=== PATIENT | female | born 1955 | race Caucasian/White ===

== ENCOUNTER 2022-04-25 16:19 | Outpatient (CLI) | payer MEDICARE, SELFPAY ==
--- NOTE | ~2022-04-25 | MM_ITS ---
EXAMINATION: MM screening [facility] BI w janeth HISTORY: Screening mammogram TECHNIQUE: Craniocaudal and mediolateral oblique 3-D tomosynthesis images were obtained and synthetic 2-D images were generated. CAD analysis was submitted and interpreted. COMPARISON: 11/21/2018, 09/29/2013 BREAST PARENCHYMAL COMPOSITION: The breasts are almost entirely fatty. FINDINGS: Scattered benign-appearing calcifications are present. There is no suspicious mass, calcifi cation, or architectural distortion to suggest malignancy in either breast. There has been no suspici ous interval change. IMPRESSION: 1. No mammographic evidence of malignancy. 2. Recommend routine screening mammography in one year. BI-RADS Category 2: Benign finding(s). Reviewed, dictated and finalized at location A.
== END 2022-04-25 16:20 | disposition home or self-care (01) ==
PROVIDERS: PCP Family Medicine; Visit Provider Physician Assistant
DX: Z12.31 Encounter for screening mammogram for malignant neoplasm of breast (principal)
CPT/HCPCS: 77063; 77067

== ENCOUNTER 2022-06-23 09:48 | Outpatient (CLI) | payer MEDICARE, SELFPAY ==
--- NOTE | 2022-06-23 | ECG_ITS ---
Measurements Intervals [place] Rate: 78 P: 62 GA: 146 QRS: 19 QRSD: 113 T: 60 QT: 384 QTc: 438 Interpretive Statements SINUS RHYTHM LOW QRS VOLTAGE IN PRECORDIAL LEADS [QRS DEFLECTION < 1.0 mV IN CHEST LEADS] NONSPECIFIC T-WAVE ABNORMALITY NO PREVIOUS ECG AVAILABLE FOR COMPARISON Electronically Signed On 06-23-2022 16:27:05 CDT by Chris Ware M.D.
--- NOTE | ~2022-06-23 | XR_ITS ---
XR knee RT 3V 06/23/2022 10:31 Indication: Right knee pain Procedure: 2 views right knee Comparison: No prior studies for comparison. Findings: Mild tricompartment osteoarthritis of the right knee. No fracture, subluxation or dislocati on. No significant joint effusion. No foreign bodies. Impression: 1: Mild osteoarthritis of the right knee. Reviewed, dictated and finalized at location A. Impression: 1: Mild osteoarthritis of the right knee.
--- NOTE | ~2022-06-23 | XR_ITS ---
XR knee LT 3V 06/23/2022 10:31 Indication: Left knee pain Procedure: 4 views left knee Comparison: No prior studies for comparison. Findings: No fracture, subluxation or dislocation. No significant joint effusion. No foreign body. No significant joint space narrowing. There is anatomic alignment. Impression: 1: No significant bone or joint abnormality. Reviewed, dictated and finalized at location A. Impression: 1: No significant bone or joint abnormality.
== END 2022-06-23 09:49 | disposition home or self-care (01) ==
PROVIDERS: PCP Physician Assistant; Visit Provider Physician Assistant
DX: M25.561 Pain in right knee (principal); M79.602 Pain in left arm; M17.11 Unilateral primary osteoarthritis, right knee; R94.31 Abnormal electrocardiogram [ECG] [EKG]
CPT/HCPCS: 73562; 93005

== ENCOUNTER 2023-02-07 13:49 | Outpatient (CLI) | payer MEDICARE, SELFPAY ==
--- NOTE | ~2023-02-07 | US_ITS ---
EXAMINATION: US renal BI DATE: 02/07/2023 14:47 INDICATION: STAGE 3A CKD TECHNIQUE: Multiple grayscale and Doppler ultrasound images of the kidneys were obtained. COMPARISON: CT abdomen pelvis 02/20/2008. FINDINGS: The right kidney measures 11.0 x 5.1 x 5.4 cm. The left kidney measures 11.3 x 4.9 x 4.9 cm. The kidn eys demonstrate normal parenchymal echogenicity. Mild bilateral cortical thinning. Bilateral simple r enal cysts. There is no hydronephrosis. The bladder is normal. IMPRESSION: Mild bilateral renal cortical thinning. Bilateral simple renal cysts. Reviewed, dictated and finalized at location K.
== END 2023-02-07 13:50 | disposition home or self-care (01) ==
PROVIDERS: PCP Physician Assistant; Visit Provider Nurse Practitioner Family
DX: N18.31 Chronic kidney disease, stage 3a (principal); N28.1 Cyst of kidney, acquired
CPT/HCPCS: 76775

== ENCOUNTER 2023-07-17 09:58 | Outpatient (CLI) | payer MEDICARE, SELFPAY ==
--- NOTE | ~2023-07-17 | MM_ITS ---
EXAMINATION: MM screening [facility] BI w janeth HISTORY: Screening mammogram TECHNIQUE: Craniocaudal and mediolateral oblique 3-D tomosynthesis images were obtained and synthetic 2-D images were generated. CAD analysis was submitted and interpreted. COMPARISON: 04/25/2022, 11/21/2018, 09/29/2013 BREAST PARENCHYMAL COMPOSITION: There are scattered areas of fibroglandular density. FINDINGS: No suspicious mass, calcification, or architectural distortion are identified in either bogdan ast to suggest malignancy. There has been no suspicious interval change. IMPRESSION: 1. No mammographic evidence of malignancy. 2. Recommend routine screening mammography in one year. BI-RADS Category 1: Negative Reviewed, dictated and finalized at location A.
== END 2023-07-17 09:59 | disposition home or self-care (01) ==
PROVIDERS: PCP Physician Assistant; Visit Provider Physician Assistant
DX: Z12.31 Encounter for screening mammogram for malignant neoplasm of breast (principal)
CPT/HCPCS: 77063; 77067

== ENCOUNTER 2024-05-06 08:25 | Outpatient (CLI) | payer MEDICARE, SELFPAY ==
--- NOTE | ~2024-05-06 | XR_ITS ---
XR knee RT 3V Ordering provider: Beckie Frey, PA History: . OSTEOARTHRITIS OF KNEE RIGHT . Comparison: June 23, 2022 FINDINGS: BONES: No acute fracture or dislocation. JOINT SPACES: Normal. SOFT TISSUES: Normal. IMPRESSION: No acute osseous abnormality right knee. Reviewed, dictated and finalized at location A.
== END 2024-05-06 08:26 | disposition home or self-care (01) ==
PROVIDERS: PCP Physician Assistant; Visit Provider Physician Assistant
DX: M17.9 Osteoarthritis of knee, unspecified (principal)
CPT/HCPCS: 73562

== ENCOUNTER 2024-05-27 10:10 | Outpatient (CLI) | payer MEDICARE, SELFPAY ==
--- NOTE | ~2024-05-27 | CT_ITS ---
CT Scan of the Chest without Contrast: Clinical Indication: Lung cancer screening, nicotine dependence Technique: Contiguous sections were acquired throughout the chest without intravenous contrast. Dose reduction technique was used on this scan by utilizing automated exposure control and iterative recon struction technique. The dose-length product (DLP) was 153.07 mGy-cm. Findings: There is no evidence of any significant mediastinal, hilar or axillary lymphadenopathy. Coronary puneet ry calcifications are present. There is no evidence of pleural or pericardial effusion. The lungs are clear. No pulmonary nodules or infiltrates are noted. Images through the upper abdomen reveal prominent hypodense adrenal glands, suggestive of adrenal hyp erplasia. Impression: Lung RADS 1: Negative. 12 month follow-up screening CT advised. Reviewed, dictated and finalized at location . Impression: Lung RADS 1: Negative. 12 month follow-up screening CT advised.
== END 2024-05-27 10:11 | disposition home or self-care (01) ==
LOC: ANHIMG 10:12
PROVIDERS: PCP Physician Assistant; Visit Provider Physician Assistant
DX: Z12.2 Encounter for screening for malignant neoplasm of respiratory organs (principal); Z87.891 Personal history of nicotine dependence
CPT/HCPCS: 71271

== ENCOUNTER 2024-07-18 10:28 | Outpatient (CLI) | payer MEDICARE, SELFPAY ==
--- NOTE | ~2024-07-18 | MM_ITS ---
EXAMINATION: MM screening [facility] BI w janeth HISTORY: Screening TECHNIQUE: Craniocaudal and mediolateral oblique 3-D tomosynthesis images were obtained and synthetic 2-D images were generated. CAD analysis was submitted and interpreted. COMPARISON: Comparison to multiple prior studies sequentially, with oldest reviewed study dated 05/2022. BREAST PARENCHYMAL COMPOSITION: Not Dense: The breasts are almost entirely fatty. FINDINGS: There is no evidence of suspicious mass, calcification, or architectural distortion to sugg est malignancy in either breast. There has been no suspicious interval change. IMPRESSION: 1. No mammographic evidence of malignancy. 2. Recommend routine screening mammography in one year. BI-RADS Category 1: Negative Reviewed, dictated and finalized at location B.
== END 2024-07-18 10:29 | disposition home or self-care (01) ==
LOC: ANHIMG 10:29
PROVIDERS: PCP Physician Assistant; Visit Provider Physician Assistant
DX: Z12.31 Encounter for screening mammogram for malignant neoplasm of breast (principal)
CPT/HCPCS: 77063; 77067

== ENCOUNTER 2025-04-06 13:10 | Outpatient (CLI) | payer MEDICARE, SELFPAY ==
--- NOTE | ~2025-04-06 | CT_ITS ---
Non-contrast CT scan of the Abdomen and Pelvis Clinical indication: Adrenal disorder Technique: 2.5 mm axial scans were obtained through the abdomen and pelvis without intravenous or or al contrast. Dose reduction technique was used on this scan by utilizing automated exposure control a nd iterative reconstruction technique. The dose-length product (DLP) was 776.53 mGy-cm. Findings: Images through the lung bases reveal minimal pericardial effusion. 6 mm nonobstructing left renal stone present. No hydronephrosis on either side. Multiple small probab le hyperdense renal cysts are present, largest at the right kidney anteriorly measuring 1.5 cm. The liver, spleen, and pancreas appear normal. There is low signal thickening of the bilateral adrena l glands, versus low-density nodules, largest which would measure 2.5 cm and the left adrenal gland. Cholecystectomy clips are present. There is no aortic aneurysm. There is no evidence of bowel obstruction. Images through the pelvis were performed. There is no evidence of ascites or lymphadenopathy. Urinary bladder unremarkable. No pelvic mass evident. Impression: Adrenal hyperplasia versus bilateral adrenal adenomas. Probable bilateral hyperdense renal cysts. Pre and postcontrast CT or MR would be required to exclude solid mass. Reviewed, dictated and finalized at [facility]. Impression: Adrenal hyperplasia versus bilateral adrenal adenomas. Probable bilateral hyperdense renal cysts. Pre and postcontrast CT or MR would be required to exclude solid mass.
--- OUTSIDE RECORDS SUMMARY | 2025-04-06 13:21 | XMS_ITS | Clinical Summary ---
Author Organization [facility] Address [address] [place] [address] Care Team Providers Care Face Man Name Role Phone Beckie Frey Primary Care Provider [phone] Surgical History Surgery Date Site/Laterality Comments HYSTERECTOMY 11/19/2009 - 11/18/2010 OOPHORECTOMY 11/19/2009 - 11/18/2010 Bilateral Social History Tobacco Use Types Packs/Day Years Used Date Smoking Tobacco: Never Assessed Comments Unknown Sex and Gender Information Value Date Recorded Sex Assigned at Not on file Legal Sex Female 10:46 AM CDT Gender Identity Not on file Sexual Orientation Not on file Obstetrics History Para Term AB IAB SAB Ectopic Multiple Livin g Live Births 3 3 3 Date Outcome GA Total Labor Labor/2nd/3rd Weight Sex Type Anes PTL [place] A1 A5 Name Clin Term Term Term Plan of Treatment Health Maintenance Due Date Last Done Comments Colon Cancer Screening-Colonoscopy 1955 Depression Screening 1955 Fall Risk Assessment 1955 Hepatitis C Screening 1956 DTaP/Tdap/Td Vaccine (1 - Tdap) 1967 Hepatitis B Screening 1974 Pneumococcal vaccine 65+ (1 of 1 - PCV) 2006 Zoster Vaccine (1 of 2) 2006 Well Visit 65+ 2021 Breast Cancer Screening-Mammogram 07/19/2024 023 Influenza Vaccine (#1) 2024 Osteoporosis Screening-Bone Density Scan 06/17/2026 06/17/2024 Procedures Procedure Name Priority Date/Time Associated Diagnosis Comments DEXA AXIAL SKELETON BONE DENSITY 1 OR MORE SITES Schedule Routine, Read Routine (OP Routine) 06/17/2024 1:53 PM CDT Asymptomatic menopausal state from Last 3 Months or Most Recently Relevant to Health Maintenance Results * Dexa Axial Skeleton Bone Density 1 or 2 Site (06/17/2024 1:53 PM CDT) Anatomical Region Laterality Modality Body N/A Mammography 06/17/2024 5:13 PM CDT Narrative 06/17/2024 5:13 PM CDT EXAM DESCRIPTION: DEXA AXIAL SKELETON BONE DENSITY 1 OR MORE SITES REASON FOR STUDY: 69 y/o year old F with given history of: Asymptomatic menopausal state 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 REFERENCE: Bone mineral density: T-Score: Normal (T-score above or = -1.0) Low bone mass (T-score between -1.0 and -2.5) replaces the previously used term osteopenia Osteoporosis (T-score = or below -2.5) Z-Score: Within the expected range for age (Z-score above -2.0) Below the expected range for age (Z-score is -2.0 or below) Please see below follow up recommendations. Medical evaluation for secondary causes of low bone mineral density may be appropriate. FRAX is a World Health Organization validated fracture risk assessment tool that calculates a person's 10 year probability of a major osteoporosis related fracture and hip fracture. According to the National Osteoporosis Foundation guidelines, postmenopausal women and men age 50 or older with low bone mass and a 10 year probability of a major osteoporosis related fracture = or greater than 20% or a 10 year probability of a hip fracture = or greater than 3% should be considered for pharmacological treatment for the prevention of osteoporosis. For further information, including treatment recommendations, please refer to the 2019 ISCD Official Positions (http://www.iscd.org) and the NOF's Clinician's Guide to Prevention and Treatment of Osteoporosis (http://www.nof.org/professionals/clinical-guidelines) THIS IS AN ELECTRONICALLY VERIFIED FINAL REPORT 06/17/2024 5:13 PM - Electronically signed by Chris Kovacs M.D. 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 REFERENCE: Bone mineral density: T-Score: Normal (T-score above or = -1.0) Low bone mass (T-score between -1.0 and -2.5) replaces thepreviously used term osteopenia Osteoporosis (T-score = or below -2.5) Z-Score: Within the expected range for age (Z-score above -2.0) Below the expected range for age (Z-score is -2.0 or below) Please see below follow up recommendations. Medical evaluation forsecondary causes of low bone mineral density may be appropriate. FRAX is a World Health Organization validated fracture risk assessmenttool that calculates a person's 10 year probability of a major osteoporosisrelated fracture and hip fracture. According to the National OsteoporosisFoundation guidelines, postmenopausal women and men age 50 or older with low bonemass and a 10 year probability of a major osteoporosis related fracture = or greater than 20% or a 10 year probability of a hip fracture = or greaterthan 3% should be considered for pharmacological treatment for the preventionof osteoporosis. For further information, including treatment recommendations, please referto the 2019 ISCD Official Positions (http://www.iscd.org) and the NOF's Clinician's Guide to Prevention and Treatment of Osteoporosis (http://www.nof.org/professionals/clinical-guidelines) THIS IS AN ELECTRONICALLY VERIFIED FINAL REPORT 06/17/2024 5:13 PM - Electronically signed by Chirs Kovacs M.D. MF: [email or web address] Report ID: [id number] Reading Location: [place] [address] Beckie TAVARES IMRonaldo DXA PROCEDURES Final Resul t from Last 3 Months or Most Recently Relevant to Health Maintenance Insurance [employer] H[employer] Care Teams Face Man Relationship Specialty Start Date End Date Beckie Frey PA [address] [place] [id number] PCP - General Physician Wood Room Supervisor 05/05/24
--- OUTSIDE RECORDS SUMMARY | 2025-04-06 13:21 | XMS_ITS | Continuity of Care Document ---
Author Organization [facility] Address [address] [place] [address] Phone Care Team Providers Care Software Installation Engineer Name Role Phone Darian Golden MD Unavailable Unavailable Advance Directives Directive Yes / No Effective Date File Name No Information Encounters Encounter Description Practice Location Reason(s) For Visit Diagnoses Date Provider Providers Copied on Encounter [facility], [address], [place], [place], [id number], [place] tel:[phone] [facility] No Information 2 0-200 5 Chantel Farmer. [address], [place], [place], [id number], [place]. tel:[phone] Referring Provider: Roland Cantrell MD, [address] [place] [address], [address]. tel:[phone] Family History Family Member Type Diagnosis Age At Onset No Information Payers Payer name Insurance type Covered democrat ID Authoriza tibandar(s) [facility] Commercial CI [id number] Social History Type Description Quantity Date Captured Comments Sex Female Smoking Status No Information Chief Complaint And Reason For Visit No Information Reason For Referral Reason For Referral No Information History Of Present Illness Encounter Date Complaint History Of Prese nt Illness No Information Functional Status Date Functional Assessmen t No Information Instructions Date Instruction Additional Infor mation No Information Assessments Type Assessment Date No Information Patient Care Teams Name Effective Dates (start - stop) Status Members No Information
--- OUTSIDE RECORDS SUMMARY | 2025-04-06 13:21 | XMS_ITS | Clinical Summary ---
Author Organization [facility] Address [address] [place] [address] Care Team Providers Care Sales Compensation Analyst Name Role Phone Malaika Mireles MD Primary Care Provider [phone] Allergies Active Allergy Reactions Criticality Noted Date Comments Tape Unknown 06/10/2019 Surgical tape causes rash Medications aspirin EC 81 MG tablet Take 81 mg by mouth daily. Active vitamin B-12 100 MCG tablet Take 50 mcg by mouth daily. Active atorvastatin 20 MG tablet Take 20 mg by mouth nightly at bedtime. Active losartan 50 MG tablet Take 50 mg by mouth daily. Active hydrochlorothia zide 25 MG tablet Take 25 mg by mouth every morning. Active pioglitazone 45 MG tablet Take 45 mg by mouth daily. Active metFORMIN 500 MG tablet Take 500 mg by mouth 2 (two) times daily with meals. Active glipiZIDE 10 MG tablet Take 10 mg by mouth 2 (two) times daily. Active omeprazole 40 MG capsule Take 40 mg by mouth daily. Active Active Problems Problem Noted Date Diagnosed Date Decreased calculated GFR 04/24/2019 Essential hypertension 04/24/2019 Type 2 diabetes mellitus wit hout complication, without long-term current use of insulin ([facility]) 04/24/2019 Family History Medical History Relation Comments Cancer Brother Diabetes Brother Heart Disease Father Diabetes Mother Diabetes Sister Relation Status Comments Brother Alive Father Mother Sister Alive Social History Tobacco Use Types Packs/Day Years Used Date Smoking Tobacco: Every Day Cigarettes Smokeless Tobacco: Never Alcohol Use Standard Drinks/Week Comments No 0 (1 standard drink = 0.6 oz pur e alcohol) AUDIT-C Answer Date Recorded Frequency of Alcohol Consumption Never 04/24/2019 Average Number of Drinks Not on file 019 Frequency of Binge Drinking Not on file 04/2019 PHQ-2 Answer Date Recorded PHQ-2 Score 0 10/21/2019 Education Answer Date Recorded What is the highest level of school you have completed or the highest degree you have received? High school graduate 04/24/2019 Comments No Sex and Gender Information Value Date Recorded Sex Assigned at Not on file Legal Sex Female 12:51 PM CDT Gender Identity Not on file Sexual Orientation Not on file Last Filed Vital Signs Vital Sign Reading Time Taken Comments Blood Pressure 120/63 08/18/2019 12:08 PM CDT Pulse 79 08/18/2019 12:08 PM CDT Temperature 36.7 C (98.1 F) 08/18/2019 11:53 AM CDT Respiratory Rate 19 08/18/2019 12:08 PM CDT Oxygen Saturation 98% 08/18/2019 12:08 PM CDT Inhaled Oxygen Concentration - - Weight 108.9 kg (240 lb) 08/15/2019 1:37 PM CDT Height 152.4 cm (5') 08/15/2019 1:37 PM CDT Body Mass Index 46.87 08/15/2019 1:37 PM CDT Plan of Treatment Health Maintenance Due Date Last Done Comments Colorectal Cancer Screening Colonoscopy (10 Years) 1956 Kidney Health Evaluation 1956 Hemoglobin A1C 1956 Lipid Panel 1956 Diabetes: Retinopathy Eye Exam 1974 Hepatitis C 1974 DTaP, Tdap and Td Vaccines ( 1 - Tdap) 1975 Pneumococcal Vaccine: 50+ Ye ars (1 of 2 - PCV) 1975 Mammogram Screening 1996 Zoster Vaccines (1 of 2) 2006 Dexa Scan (General) 2021 COVID-19 Vaccine (1 - 2023-2 5 season) 2024 RSV Immunization or 60+ Years (1 - 1-dose 75+ series) 2031 Meningococcal B Vaccine Aged Out No l onger eligible based on patient's age to complete this topic Meningococcal Vaccine Aged Out No quoc amanda eligible based on patient's age to complete this topic RSV Immunizations Under 20 Months Aged Out No longer eligible based on patient's age to complete this topic [place] [address] Care Teams Sales Compensation Analyst Relationship Specialty Start Date End Date Malaika Mireles MD [facility] [address] [place] [id number] PCP - General FAMILY PRACTICE 04/03/19
--- OUTSIDE RECORDS SUMMARY | 2025-04-06 13:21 | XMS_ITS | Clinical Summary ---
Author Organization [facility] Address [address] [place] [address] Phone Care Team Providers Care Director Radio News Name Role Phone Beckie Frey Primary Care Provider [phone] Allergies Active Allergy Reactions Criticality Noted Date Comments Menthol 01/03/2023 Medications omega-3 acid ethyl esters (LOVAZA) 1 g capsule Take 1 g by mouth 1 (one) time each day Active atorvastatin (LIPITOR) 20 MG tablet Take 20 mg by mouth 1 (one) time each day Active metFORMIN (GLUCOPHAGE) 500 MG tablet Take 1,000 mg by mouth in the morning and 1,000 mg in the evening. Take with meals. Active aspirin (ST MONTSERRAT) 81 MG EC tablet Take 81 mg by mouth 1 (one) time each day Active hydroCHLOROthia zide (HYDRODIURIL) 25 MG tablet Take 25 mg by mouth 1 (one) time each day Active losartan (COZAAR) 100 MG tablet Take 100 mg by mouth 1 (one) time each day Active cyanocobalamin (VITAMIN B-12) 1000 MCG tablet Take 500 mcg by mouth 1 (one) time each day Active CALCIUM PO Take by mouth Active VITAMIN D PO Take by mouth Active MAGNESIUM PO Take by mouth Active Active Problems Problem Noted Date Diagnosed Date Hyperuricemia 07/19/2023 Type 2 diabetes mellitus wit h diabetic chronic kidney disease 03/27/2023 Essential (primary) hypertension 01/03/2023 Stage 3b chronic kidney disease 01/03/2023 Resolved Problems Problem Noted Date Diagnosed Date Resolved Date Serum creatinine raised 01/03/2023 05/0 07/2023 Type 2 diabetes mellitus 01/03/202307/2023 Hypercholesterolemia 01/03/2023 023 Encounters Date Type Department Care Team Description 01/20/2025 2:20 PM [facility] Office Visit [facility] [address], [address] [place] [address] Marta Monae NP Stage 3b chronic kidney disease ([facility]) (Primary Dx); Type 2 diabetes mellitus with diabetic chronic kidney disease ([facility]); Essential (primary) hypertension; Hyperuricemia; Anemia in chronic kidney disease 01/12/2025 Orders Only [facility] [address] [facility] [address] [place] [address] Marta Monae NP from Last 3 Months Social History Tobacco Use Types Packs/Day Years Used Date Smoking Tobacco: Every Day Cigarettes 0.5 45.4 Started: 1978 Smokeless Tobacco: Never Tobacco Cessation:Ready to Q uit: Not Asked; Counseling Given: Not Answered Alcohol Use Standard Drinks/Week Comments Never 0 (1 standard drink = 0.6 oz pur e alcohol) Comments Unknown Sex and Gender Information Value Date Recorded Sex Assigned at Not on file Legal Sex Female 9:40 AM [facility] Gender Identity Not on file Sexual Orientation Not on file Last Filed Vital Signs Vital Sign Reading Time Taken Comments Blood Pressure 173/100 01/20/2025 2:10 PM [facility] Pulse 66 01/20/2025 2:10 PM [facility] Temperature - - Respiratory Rate - - Oxygen Saturation - - Inhaled Oxygen Concentration - - Weight 88.5 kg (195 lb) 01/20/2025 2:10 PM [facility] Height 152.4 cm (5') 01/20/2025 2:10 PM [facility] Body Mass Index 38.08 01/20/2025 2:10 PM [facility] Plan of Treatment Upcoming Encounters Date Type Department Care Team ([facility] Contact Info) Description 05/19/2025 3:00 PM CDT Office Visit [facility] [address], [address] [place] [address] Marta Monae NP [address] [facility] [address] [place], [place] [id number] Health Maintenance Due Date Last Done Comments Diabetic Foot Exam 1966 Ophthalmology Exam 1966 Pneumococcal PPSV23/PCV13 65 + Years / High and Highest Risk (1 of 5 - PCV) 1975 Influenza Vaccine (Season Ended) 2025 Procedures Procedure Name Priority Date/Time Associated Diagnosis Comments PTH, INTACT Routine 01/12/2025 8:02 AM [facility] RENAL FUNCTION PANEL (RFP) Routine 01/12/2025 8:02 AM [facility] CBC (INCLUDES DIFFERENTIAL/PLATEL ETS) Routine 01/12/2025 8:02 AM [facility] from Last 3 Months Results * PTH, Intact (01/12/2025 8:02 AM [facility]) Pathologist [facility] PTH, Intact, Serum/Plasma 27 15 - 65 pg/mL [facility] 1 01/12/2025 8:02 AM [facility] 01/11/2025 11:00 PM [facility] Narrative [facility] - 01/13/2025 10:10 AM [facility] Performed at: [facility] [id number] Rn Urology: Homer Perry PhD, Phone: [phone] us Marta Monea BANK REPRESENTATIVE LAB BLOOD ORDERABLES Final Resu lt [facility] 1 * (ABNORMAL) CBC (includes Differential/Platelets) (01/12/2025 8:02 AM [facility]) Pathologist [facility] Leukocytes, Blood 6.2 3.4 - 10.8 x10E3/uL [facility] 1 Erythrocytes (RBC) 3.64(L) 3.77 - 5.28 x10E6/uL [facility] 1 Hemoglobin (HGB) 11.6 11.1 - 15.9 g/dL [facility] 1 Hematocrit (HCT) 35.0 34.0 - 46.6 % [facility] 1 MCV 96 79 - 97 fL [facility] 1 MCH 31.9 26.6 - 33.0 pg [facility] 1 MCHC 33.1 31.5 - 35.7 g/dL [facility] 1 Erythrocyte Distribution Width (RDW) 11.8 11.7 - 15.4 % [facility] 1 Platelets, Blood 251 150 - 450 x10E3/uL [facility] 1 Neutrophils/100 leukocytes, Blood 51 Not Estab. % [facility] 1 Lymphocytes/100 leukocytes, Blood 34 Not Estab. % [facility] 1 Monocytes/100 leukocytes, Blood 7 Not Estab. % [facility] 1 Eosinophils/100 leukocytes, Blood 7 Not Estab. % [facility] 1 Basophils/100 leukocytes, Blood 1 Not Estab. % [facility] 1 Neutrophils, Blood 3.1 1.4 - 7.0 x10E3/uL [facility] 1 Lymphocytes, Blood 2.1 0.7 - 3.1 x10E3/uL [facility] 1 Monocytes, Blood 0.4 0.1 - 0.9 x10E3/uL [facility] 1 Eosinophils, Blood 0.5(H) 0.0 - 0.4 x10E3/uL [facility] 1 Basophils, Blood 0.1 0.0 - 0.2 x10E3/uL [facility] 1 Immature granulocytes/100 leukocytes, Blood 0 Not Estab. % [facility] 1 Immature granulocytes, Blood 0.0 0.0 - 0.1 x10E3/uL [facility] 1 01/12/2025 8:02 AM [facility] 01/11/2025 11:00 PM [facility] Narrative [facility] - 01/13/2025 10:10 AM [facility] Performed at: [address] [place] [id number] Rn Urology: Homer Perry PhD, Phone: [phone] Specimen Comment: A courtesy copy of this report has been sent to [facility]- Specimen Comment: Rico [phone], Specimen Comment: A duplicate report has been generated due to demographic updates. us Marta Monae NP LAB BLOOD ORDERABLES Final Resu lt [facility] * (ABNORMAL) Renal Function Panel (RFP) (01/12/2025 8:02 AM [facility]) Glucose, Serum/Plasma 101(H) 70 - 99 mg/dL [facility] 1 Urea nitrogen, Serum/Plasma (BUN) 33(H) 8 - 27 mg/dL [facility] 1 Creatinine, Serum/Plasma 1.36(H) 0.57 - 1.00 mg/dL [facility] 1 Estimated Glomerular Filtration Rate (eGFR) 42(L) >59 mL/min/1.7 3 [facility] 1 Urea nitrogen/Creati nine, Serum/Plasma 24 12 - 28 [facility] 1 Sodium, Serum/Plasma 143 134 - 144 mmol/L [facility] 1 Potassium, Serum/Plasma 4.4 3.5 - 5.2 mmol/L [facility] 1 Chloride, Serum/Plasma 106 96 - 106 mmol/L [facility] 1 Carbon dioxide CO2), total, Serum/Plasma 23 20 - 29 mmol/L [facility] 1 Calcium, Serum/Plasma 9.3 8.7 - 10.3 mg/dL [facility] 1 Phosphate, Serum/Plasma 3.3 3.0 - 4.3 mg/dL [facility] 1 Albumin, Serum/Plasma 4.2 3.9 - 4.9 g/dL [facility] 1 01/12/2025 8:02 AM [facility] 01/11/2025 11:00 PM [facility] Narrative [facility] - 01/13/2025 10:10 AM [facility] Performed at: 01 - [facility] [address] [id number] Rn Urology: Homer Perry PhD, Phone: [phone] us Marta Monae NP LAB BLOOD ORDERABLES Final Resu lt [facility] 1 from Last 3 Months Insurance MEDICAID Care Teams Director Radio News Relationship Specialty Start Date End Date Beckie Frey PA [address] [place] [phone] PCP - General Family Medicine 08/21/23
--- OUTSIDE RECORDS SUMMARY | 2025-04-06 13:21 | XMS_ITS | Referral Summary ---
Author Organization [facility] Address [address] [place] [address] Care Team Providers Care Plate Former Name Role Phone Beckie Frey Primary Care Provider Social History Tobacco Use Types Packs/Day Years Used Date Smoking Tobacco: Never Assessed Comments Unknown Sex and Gender Information Value Date Recorded Sex Assigned at Not on file Legal Sex Female 10:46 AM CDT Gender Identity Not on file Sexual Orientation Not on file Plan of Treatment Not on file Procedures Procedure Name Priority Date/Time Associated Diagnosis [...] with given history of: Asymptomatic menopausal state Credentials Specialist/Model: Technorides A (S/N [id number]) CLINICAL INFORMATION: Current height: 60 inches Maximum [...] Chris Kovacs M.D. MF: BRIAN Report ID: [id number] Reading Location: [address] Note Chris Kovacs MD - 06/17/2024 EXAM DESCRIPTION: DEXA AXIAL SKELETON BONE DENSITY 1 OR MORE SITES REASON FOR STUDY: 69 y/o year old F with given history of:Asymptomatic menopausal state Credentials Specialist/Model: Technorides A (S/N [id number]) CLINICAL INFORMATION: Current height: 60 inches Maximum [...] Chris Kovacs M.D. MF: BRIAN Report ID: [id number] Reading Location: [id number] us Beckie TAVARES IMG DXA PROCEDURES Final Resul t from Last 3 Months or Most Recently Relevant to Health Maintenance Insurance [employer] HMO Care Teams Plate Former Relationship Specialty Start Date End Date Beckie Frey PA [address] [place] [id number] PCP - General Physician Wage Adjuster 05/05/24
== END 2025-04-06 13:11 | disposition home or self-care (01) ==
PROVIDERS: PCP Physician Assistant; Visit Provider Internal Medicine
DX: E27.8 Other specified disorders of adrenal gland (principal); E11.9 Type 2 diabetes mellitus without complications; E66.9 Obesity, unspecified; I10 Essential (primary) hypertension
CPT/HCPCS: 74176

== ENCOUNTER 2025-05-18 07:56 | Outpatient (CLI) | payer MEDICARE, SELFPAY | END 2025-05-18 07:57 | disposition home or self-care (01) | PROVIDERS: PCP Physician Assistant; Visit Provider Internal Medicine | DX: E27.8 Other specified disorders of adrenal gland (principal); E11.9 Type 2 diabetes mellitus without complications | CPT/HCPCS: 36415; 80299 ==

== ENCOUNTER 2025-08-12 09:01 | Outpatient (CLI) | payer MEDICARE, SELFPAY ==
[2025-08-12 09:30] LABS: Hematocrit 36.1 % (37.0-47.0); Hemoglobin 11.5 g/dL (12.0-15.0); Immature Granulocyte Percent A 0.4 % (0-0.5); Lymphocytes Absolute Auto 1.48 K/mm3 (0.9-3.2); Mean Corpuscular HGB Conc 31.9 g/dl (32-36); Mean Corpuscular Hemoglobin 31.3 pg (26-34); Mean Corpuscular Volume 98.1 fl (80-100); Nucleated Red Blood Cells Absolute Auto 0.000 K/mm3 (0.0-0.012); Nucleated Red Blood Cells Perc 0.0 % (0.0-0.2); Platelet Count Result 235 k/mm3 (150-375); Red Blood Count 3.68 M/mm3 (4.2-5.4); White Blood Count 6.7 K/mm3 (4.5-10.0)
--- OUTSIDE RECORDS SUMMARY | 2025-08-12 09:40 | XMS_ITS | Clinical Summary ---
Author Organization [facility] Address [address] [place] [address] Care Team Providers Care Machine Heddle Cleaner Name Role Phone Beckie Frey Primary Care Provider Surgical History Surgery Date Site/Laterality Comments HYSTERECTOMY [...] Cancer Screening-Mammogram 07/19/2024 023 Influenza Vaccine (#1) 2025 Osteoporosis Screening-Bone Density Scan 06/17/2026 06/17/2024 Procedures [...] with given history of: Asymptomatic menopausal state Director Sterile Processing/Model: vushaper A (S/N [id number]) CLINICAL INFORMATION: Current height: 60 inches Maximum [...] Chris Kovacs M.D. MF: BRIAN Report ID: [id number] Reading Location: [id number] Procedure Note Chris Kovacs MD - 06/17/2024 EXAM DESCRIPTION: DEXA AXIAL SKELETON BONE DENSITY 1 OR MORE SITES REASON FOR STUDY: 69 y/o year old F with given history of:Asymptomatic menopausal state Director Sterile Processing/Model: vushaper A (S/N [id number]) CLINICAL INFORMATION: Current height: 60 inches Maximum [...] Chris Kovacs M.D. MF: BRIAN Report ID: [id number] Reading Location: [place] [address] Beckie TAVARES IMRonaldo DXA PROCEDURES Final Resul t from Last 3 Months or Most Recently Relevant to Health Maintenance Insurance [employer] HMO Care Teams Machine Heddle Cleaner Relationship Specialty Start Date End Date Beckie Frey PA [address] [place] [phone] PCP - General Physician Box Office Manager 05/05/24
--- OUTSIDE RECORDS SUMMARY | 2025-08-12 09:40 | XMS_ITS | Clinical Summary ---
Author Organization [facility] Address [address] [place] [address] Care Team Providers Care Game Designer Name Role Phone Malaika Mireles MD Primary Care Provider [phone] Allergies Active Allergy Reactions Criticality Noted Date [...] complication, without long-term current use of insulin ([facility]) 04/24/2019 Family History Medical History Relation Comments [...] COVID-19 Vaccine (1 - 2023-2 5 season) 2025 RSV Immunization or 60+ Years (1 - 1-dose 75+ series) 2031 Meningococcal B Vaccine Aged Out No l onger eligible based on patient's age to complete this topic Meningococcal Vaccine Aged Out No quoc amanda eligible based on patient's age to complete this topic RSV Immunizations Under 20 Months Aged Out No longer eligible based on patient's age to complete this topic Insurance [place] [address] Care Teams Game Designer Relationship Specialty Start Date End Date Malaika Mireles MD [facility] [address] [place] [phone] PCP - General FAMILY PRACTICE 04/03/19
--- OUTSIDE RECORDS SUMMARY | 2025-08-12 09:40 | XMS_ITS | Clinical Summary ---
Author Organization [facility] Address [address] [place] [address] Care Team Providers Care Voice Professor Name Role Phone Roland Cantrell MD Primary Care Provider [phone] Source Comments [facility],non-owned Affiliates and Associated Physician Practices is amultiple site organization consisting of ambulatory clinics and hospital sitesin [place], [place], [place] and [place]. This disclosure is being madepursuant to the Care Everywhere program and may not contain all information available regarding this patient. Last updated 18.[facility] Allergies Active Allergy Reactions Criticality Noted Date Comments Adhesive Sensitivity Unknown 06/10/2019 Surgical tape causes rash Menthol Other 01/03/2023 Medications * Be aware that medications may not be up to date on this document. Alwaysverify current medications with the patient. amLODIPine (Norvasc) 5 MG tablet TAKE 1 TABLET BY MOUTH ONCE DAILY IN THE MORNING FOR HIGH BLOOD PRESSURE 06/03/2025 Active atorvastatin (Lipitor) 20 MG tablet Take 1 (one) tablet by mouth at bedtime Active OneTouch Ultra test strip USE 1 STRIP TO CHECK GLUCOSE ONCE DAILY 07/23/2025 Active hydroCHLOROthia zide (Hydrodiuril) 25 MG tablet Take 1 (one) tablet by mouth once daily Active Lancets (ONETOUCH DELICA PLUS 33G EXTRA FINE LANCET) USE TO CHECK BLOOD SUGAR ONCE DAILY 07/23/2025 Active losartan (Cozaar) 100 MG tablet Take 1 (one) tablet by mouth once daily Active metFORMIN (Glucophage) 1000 MG tablet Take 1 (one) tablet by mouth 2 times daily with morning and evening meal 07/23/2025 Active fpgrh-0-teaq ethyl esters (Lovaza) 1 g capsule Take 1 (one) capsule by mouth once daily Active Cyanocobalamin 1000 MCG Take 0.5 (one-half) tablet by mouth once daily Active aspirin EC (Ecotrin) 81 MG tablet Take 1 (one) tablet by mouth once daily Active Encounters Date Type Department Care Team Description 08/06/2025 1:45 PM CDT Office Visit [facility] - Urology [address] [facility] [address] [place] [address] Jo Alexander DO Abnormal ultrasound of both kidneys (Primary Dx); Renal cyst; Kidney stones 08/06/2025 Travel 06/11/2025 Travel from Last 3 Months Social History Tobacco Use Types Packs/Day Years Used Date Smoking Tobacco: Former Cigarettes Smokeless Tobacco: Never Tobacco Cessation:Counseling Given: Not Answered Alcohol Use Standard Drinks/Week Comments Never 0 (1 standard drink = 0.6 oz pur e alcohol) PHQ-2 Answer Date Recorded Patient Health Questionnaire-2 Score 0 08/06/2025 Comments Unknown Sex and Gender Information Value Date Recorded Sex Assigned at Not on file Legal Sex Female 6:37 AM [facility] Gender Identity Not on file Sexual Orientation Not on file Last Filed Vital Signs Vital Sign Reading Time Taken Comments Blood Pressure 147/81 08/06/2025 2:21 PM CDT Pulse 69 08/06/2025 2:21 PM CDT Temperature 36.7 C (98 F) 08/06/2025 2:21 PM CDT Respiratory Rate 17 08/06/2025 2:21 PM CDT Oxygen Saturation 98% 08/06/2025 2:21 PM CDT Inhaled Oxygen Concentration - - Weight 85.3 kg (188 lb) 08/06/2025 2:21 PM CDT Height 152.4 cm (5') 08/06/2025 2:21 PM CDT Body Mass Index 36.72 08/06/2025 2:21 PM CDT Plan of Treatment Upcoming Encounters Date Type Department Care Team (Late st Contact Info) Description 09/04/2025 9:00 AM CDT Appointment [facility] Imaging Services - MRI [address] [place] [address] Jo Alexander, DO [address] [place] [phone] 10/08/2025 1:15 PM FLAP CURER Video Visit [facility] - Urology [address] [place] [address] Rd [address] [place] [address] Jo Alexander, DO [address] DIV [place] [phone] Health Maintenance Due Date Last Done Comments COLOGUARD (AGES 45-75) - COL ON CA SCREENING 1956 COLON MONITORING 1956 COLONOSCOPY - COLON CA SCREENING 1956 CT COLONOGRAPHY - COLON CA SCREENING 1955 Colorectal Cancer Screening 1956 FIT - COLON CA SCREENING 1956 FLEX SIG - COLON CA SCREENING 1956 MAMMOGRAM 1956 HEPATITIS C SCREENING 05/10/1974 DTAP/TDAP/TD VACCINES (1 - Tdap) 1975 PNEUMOCOCCAL VACCINE 50+ (1 of 1 - PCV) 2006 ZOSTER VACCINE (1 of 2) 2006 MEDICARE AWV CALENDAR YEAR 2024 COVID-19 VACCINE (1 - 2023-2 5 season) 2025 INFLUENZA VACCINE (#1) 2025 SCREENING FOR DIABETES 08/06/2025 Respiratory Syncytial Virus (RSV) Vaccine Pt: or over 60 yrs (1 - 1-dose 75+ series) 2031 BONE DENSITY TESTING Completed 06/17/2024 DEPRESSION SCREENING Completed 08/06/2025 HEPATITIS B VACCINE Aged Out No longe r eligible based on patient's age to complete this topic HIB VACCINE Aged Out No longer eligi ble based on patient's age to complete this topic HPV VACCINE Aged Out No longer eligi ble based on patient's age to complete this topic MENINGOCOCCAL (Group B) VACC INE SHARED DECISION-MAKING Aged Out No longer eligibl e based on patient's age to complete this topic MENINGOCOCCAL GROUPS A/C/Y/W VACCINE Aged Out No longer eligible b ased on patient's age to complete this topic Procedures Procedure Name Priority Date/Time Associated Diagnosis Comments CULTURE URINE Routine 08/06/2025 4:36 PM CDT Abnormal ultrasound of both kidneys Renal cyst Kidney stones URINALYSIS AUTO - POINT OF CARE (AMB) [facility] Routine 08/06/2025 2:36 PM CDT Abnormal ultrasound of both kidneys from Last 3 Months Results * (ABNORMAL) CULTURE URINE (08/06/2025 4:36 PM CDT) Culture (A) [facility] Comment: CULTURE, URINE, ROUTINE Micro Number: [id number] Test Status: Final Specimen Source: Urine clean Specimen Quality: Adequate Result: Greater than 100,000 CFU/mL of Escherichia coli COMMENT: Additional non-predominating organism(s) isolated. These organisms, commonly found on external and internal genitalia, are considered colonizers. No further testing performed. E.coli INT TIERA AMOX/CLAVULANATE S 4 AMP/SULBACTAM S <=2 CEFAZOLIN NR <=1 2 CEFEPIME S <=0.12 CEFTAZIDIME S <=0.5 CEFTRIAXONE S <=0.25 CIPROFLOXACIN S <=0.06 GENTAMICIN S <=1 IMIPENEM S <=0.25 LEVOFLOXACIN S <=0.12 MEROPENEM S <=0.25 NITROFURANTOIN S <=16 PIP/TAZOBACTAM S <=4 TRIMETHOPRIM/SULFA S <=20 S = Susceptible I = Intermediate R = Resistant NS = Not susceptible SDD = Susceptible Dose Dependent * = Not Tested NR = Not Reported NN = See Therapy Comments THERAPY COMMENTS Note 1: For infections other than uncomplicated UTI caused by E. coli, K. pneumoniae or P. mirabilis: Cefazolin is resistant if TIERA > or = 8 mcg/mL. (Distinguishing susceptible versus intermediate for isolates with TIERA < or = 4 mcg/mL requires additional testing.) Note 2: For uncomplicated UTI caused by E. coli, K. pneumoniae or P. mirabilis: Cefazolin is susceptible if TIERA <32 mcg/mL and predicts susceptible to the oral agents cefaclor, cefdinir, cefpodoxime, cefprozil, cefuroxime, cephalexin and loracarbef. Test Performed at: [facility] [address] NEAL SHARP MD Urine URINE SPECIMEN OBTAINED BY CLEAN CATCH PROCEDURE / Unknown 08/06/2025 4:36 PM CDT 08/07/2025 2:40 AM CDT Jo Husam Catherine DO LAB - MICROBIOLOGY ORDERAB LES Final Result [facility] [address] [place] [id number] * URINALYSIS AUTO - POINT OF CARE (AMB) [facility] (08/06/2025 2:36 PM CDT) Glucose UA neg [facility] [address] Bilirubin UA POCT neg [facility] [address] Ketones UA POCT neg [facility] [address] Specific [place] UA 1.[address] [facility] [address] Blood Urine POCT neg [facility] [address] pH UA 6.0 [facility] [address] Protein UA +-15mg/dl [facility] [address] Urobilinogen UA 0.2mg/dl [facility] [address] Nitrite UA neg [facility] [address] WBC UA 2+125leu/ ul [facility] [address] Urine URINE / Unknown 08/06/2025 2 :36 PM CDT Jo Alexander DO LAB - POINT OF CARE ORDERA BLES Final Result [facility] [address] [place] [address], [facility] [phone] from Last 3 Months Insurance [id number] Care Teams Voice Professor Relationship Specialty Start Date End Date Roland Cantrell MD [address] [place] [phone] PCP - General 07/04/22
--- OUTSIDE RECORDS SUMMARY | 2025-08-12 09:40 | XMS_ITS | Clinical Summary ---
Author Organization [facility] Address [address] [place] [address] Phone Care Team Providers Care Pcas Name Role Phone Beckie Frey Primary Care Provider Allergies Active Allergy Reactions Criticality Noted Date [...] 2 diabetes mellitus 01/03/202307/2023 Hypercholesterolemia 01/03/2023 023 Social History Tobacco Use Types Packs/Day Years Used Date Smoking Tobacco: Every Day Cigarettes 0.5 45.7 Started: 1978 Smokeless Tobacco: Never Tobacco Cessation:Ready to Q uit: Not Asked; Counseling Given: Not Answered Alcohol Use Standard Drinks/Week Comments Never 0 (1 standard drink = 0.6 oz pur e alcohol) Comments Unknown Sex and Gender Information Value Date Recorded Sex Assigned at Not on file Legal Sex Female 9:40 AM [facility] Gender Identity Not on file Sexual Orientation Not on file Last Filed Vital Signs Vital Sign Reading Time Taken Comments Blood Pressure 173/100 01/20/2025 2:10 PM CHIEF AIRPORT GUIDE Pulse 66 01/20/2025 2:10 PM CHIEF AIRPORT GUIDE Temperature - - Respiratory Rate - - Oxygen Saturation - - Inhaled Oxygen Concentration - - Weight 88.5 kg (195 lb) 01/20/2025 2:10 PM CHIEF AIRPORT GUIDE Height 152.4 cm (5') 01/20/2025 2:10 PM CHIEF AIRPORT GUIDE Body Mass Index 38.08 01/20/2025 2:10 PM CHIEF AIRPORT GUIDE Plan of Treatment Upcoming Encounters Date Type Department Care Team ([facility] st Contact Info) Description 08/25/2025 2:40 PM CDT Office Visit [facility] [address] [place] [address] Marta Monae, INVESTMENT ASSOCIATE [address] [phone] Health Maintenance Due Date Last Done Comments Diabetic Foot Exam 1966 Ophthalmology Exam 1966 Pneumococcal PPSV23/PCV13 65 + Years / High and Highest Risk (1 of 5 - PCV) 1975 Influenza Vaccine (#1) 2025 Insurance MEDICAID Care Teams Pcas Relationship Specialty Start Date End Date Beckie Frey PA [address] [place] [address] PCP - General Family Medicine 08/21/23
[2025-08-12 09:49] LABS: Hemoglobin A1C 6.3 % (<5.7)
[2025-08-12 09:53] LABS: Albumin Level 4.4 g/dL (3.5-5.1); Anion Gap 13 mmol/L (4-12); Blood Urea Nitrogen 40 mg/dL (7-17); Calcium 9.2 mg/dL (8.4-10.2); Carbon Dioxide 21 mmol/L (22-30); Chloride 105 mmol/L (98-107); Estimated Glomerular Filt Rate 35; Glucose 96 mg/dL (65-110); Iron 80 ug/dL (37-170); Magnesium 2.4 mg/dL (1.6-2.3); Potassium 4.3 mmol/L (3.4-5.0); Sodium 139 mmol/L (137-145)
[2025-08-12 10:03] LABS: Percent Iron Saturation 21 % (20-50)
[2025-08-12 10:35] LABS: Ferritin 24.80 ng/mL (11.1-264)
[2025-08-12 16:33] LABS: Parathyroid Intact 29.3 pg/mL (14.5-75.2)
== END 2025-08-12 09:02 | disposition home or self-care (01) ==
LOC: ANHLAB 09:04
PROVIDERS: PCP Physician Assistant; Visit Provider Nurse Practitioner Family
DX: N18.32 Chronic kidney disease, stage 3b (principal); E11.8 Type 2 diabetes mellitus with unspecified complications; D63.1 Anemia in chronic kidney disease
CPT/HCPCS: 36415; 80069; 82728; 83036; 83540; 83550; 83735; 83970; 85025

== ENCOUNTER 2025-09-07 15:42 | Outpatient (CLI) | payer MEDICARE, SELFPAY ==
--- NOTE | ~2025-09-07 | MM_ITS ---
EXAMINATION: MM screening [facility] BI w janeth HISTORY: Screening TECHNIQUE: Craniocaudal and mediolateral oblique 3-D tomosynthesis images were obtained and synthetic 2-D images were generated. CAD analysis was submitted and interpreted. COMPARISON: Comparison to multiple prior studies sequentially, with oldest reviewed study dated 11/21/2018. BREAST PARENCHYMAL COMPOSITION: The breasts are almost entirely fatty. FINDINGS: There is no evidence of suspicious mass, calcification, or architectural distortion to suggest malignancy in either breast. Scattered benign-appearing calcifications are present. IMPRESSION: 1. No mammographic evidence of malignancy. 2. Recommend routine screening mammography in one year. BI-RADS Category 2: Benign finding(s). Reviewed, dictated and finalized at location B.
--- OUTSIDE RECORDS SUMMARY | 2025-09-07 18:19 | XMS_ITS | Clinical Summary ---
Author Organization [facility] Address [address] [place] [address] Care Team Providers Care Route Sales Delivery Drivers Supervisor Name Role Phone Beckie Frey Primary Care Provider [phone] Surgical History Surgery Date Site/Laterality Comments HYSTERECTOMY [...] with given history of: Asymptomatic menopausal state Discharge Planner/Model: [email or web address] A (S/N [id number]) CLINICAL INFORMATION: Current height: 60 inches Maximum [...] Chris Kovacs M.D. MF: BRIAN Report ID: [id number] Reading Location: [id number] Procedure Note Chris Kovacs MD - 06/17/2024 EXAM DESCRIPTION: DEXA AXIAL SKELETON BONE DENSITY 1 OR MORE SITES REASON FOR STUDY: 69 y/o year old F with given history of:Asymptomatic menopausal state Discharge Planner/Model: [email or web address] A (S/N [id number]) CLINICAL INFORMATION: Current height: 60 inches Maximum [...] Chris Kovacs M.D. MF: BRIAN Report ID: [id number] Reading Location: [place] [address] Beckie TAVARES IMRonaldo DXA PROCEDURES Final Resul t from Last 3 Months or Most Recently Relevant to Health Maintenance Insurance [employer] HMO Care Teams Route Sales Delivery Drivers Supervisor Relationship Specialty Start Date End Date Beckie Frey PA [address] [place] [id number] PCP - General Physician Test Analyst 05/05/24
--- OUTSIDE RECORDS SUMMARY | 2025-09-07 18:19 | XMS_ITS | Clinical Summary ---
Author Organization [facility] Address [address] [place] [address] Care Team Providers Care River Tester Name Role Phone Malaika Mireles MD Primary Care Provider [phone] Allergies Active Allergy Reactions Criticality Noted Date [...] complication, without long-term current use of insulin 04/24/2019 Family History Medical History Relation Comments [...] 2006 Dexa Scan (General) 2021 COVID-19 Vaccine ( - 2024-2 6 season) 2025 Influenza Adult (#1) 2025 RSV Immunization or 60+ Years (1 - 1-dose 75+ series) 2031 Hepatitis A Vaccines Aged Out No long er eligible based on patient's age to complete this topic Meningococcal B Vaccine Aged Out No l onger eligible based on patient's age to complete this topic Meningococcal Vaccine Aged Out No quoc amanda eligible based on patient's age to complete this topic RSV Immunizations Under 20 Months Aged Out No longer eligible based on patient's age to complete this topic Insurance [employer] Care Teams River Tester Relationship Specialty Start Date End Date Malaika Mireles MD [facility] [address] [id number] PCP - General FAMILY PRACTICE 04/03/19
== END 2025-09-07 15:43 | disposition home or self-care (01) ==
LOC: ANHFOHIMG 15:43
PROVIDERS: PCP Physician Assistant; Visit Provider Physician Assistant
DX: Z12.31 Encounter for screening mammogram for malignant neoplasm of breast (principal)
CPT/HCPCS: 77063; 77067

== ENCOUNTER 2025-11-18 08:41 | Outpatient (CLI) | payer MEDICARE, SELFPAY ==
--- OUTSIDE RECORDS SUMMARY | 2025-11-18 08:45 | XMS_ITS | Clinical Summary ---
Author Organization [facility] Address [address] [place] [id number] Phone Care Team Providers Care Gas Cutting Machine Operator Name Role Phone Beckie Frey Primary Care Provider [phone] Allergies Active Allergy Reactions Criticality Noted Date [...] day Active CALCIUM PO Take by mouth Calcium + Vit D 600 Active MAGNESIUM PO Take by mouth Active amLODIPine (NORVASC) 5 MG tablet Take 5 mg by mouth 1 (one) time each day Active Active Problems Problem Noted Date Diagnosed Date Anemia in chronic kidney disease 08/13/2025 Hyperuricemia 07/19/2023 Type 2 diabetes mellitus wit h diabetic chronic kidney disease 03/27/2023 Essential (primary) hypertension 01/03/2023 Stage 3b chronic kidney disease 01/03/2023 Resolved Problems Problem Noted Date Diagnosed Date Resolved Date Serum creatinine raised 01/03/2023 05/0 07/2023 Type 2 diabetes mellitus 01/03/202307/2023 Hypercholesterolemia 01/03/2023 023 Encounters Date Type Department Care Team Description 08/25/2025 2:40 PM CDT Office Visit [facility] [address], [address] [place] [address] Marta Monae NP Stage 3b chronic kidney disease (Primary Dx); Type 2 diabetes mellitus with diabetic chronic kidney disease, not otherwise specified; Essential (primary) hypertension; Anemia in chronic kidney disease from Last 3 Months Social History Tobacco Use Types Packs/Day Years Used Date Smoking Tobacco: Every Day Cigarettes 0.5 46 Started: 1978 Smokeless Tobacco: Never Tobacco Cessation:Ready to Q uit: Not Asked; Counseling Given: Not Answered Alcohol Use Standard Drinks/Week Comments Never 0 (1 standard drink = 0.6 oz pur e alcohol) Comments Unknown Sex and Gender Information Value Date Recorded Sex Assigned at Not on file Legal Sex Female 9:40 AM [facility] Gender Identity Not on file Sexual Orientation Not on file Last Filed Vital Signs Vital Sign Reading Time Taken Comments Blood Pressure 132/77 08/25/2025 2:17 PM CDT Pulse 72 08/25/2025 2:17 PM CDT Temperature - - Respiratory Rate - - Oxygen Saturation - - Inhaled Oxygen Concentration - - Weight 86.6 kg (191 lb) 08/25/2025 2:17 PM CDT Height 152.4 cm (5') 08/25/2025 2:17 PM CDT Body Mass Index 37.3 08/25/2025 2:17 PM CDT Plan of Treatment Upcoming Encounters Date Type Department Care Team (Late st Contact Info) Description 12/22/2025 12:20 PM [employer] Office Visit [facility] [address], [address] [place] [address] Marta Monae NP [address] [phone] Health Maintenance Due Date Last Done Comments Diabetic Foot Exam 1966 Ophthalmology Exam 1966 Pneumococcal PPSV23/PCV13 65 + Years / High and Highest Risk (1 of 5 - PCV) 1975 Influenza Vaccine (#1) 2025 Insurance [facility] [place] [address] Care Teams Gas Cutting Machine Operator Relationship Specialty Start Date End Date Beckie Frey PA [address] [place] [address] [place] [phone] PCP - General Family Medicine 08/21/23
--- OUTSIDE RECORDS SUMMARY | 2025-11-18 08:46 | XMS_ITS | Clinical Summary ---
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 MF: BRIAN Report ID: [id number] Reading Location: [place] [address] Beckie TAVARES IMRonaldo DXA PROCEDURES Final Resul t from Last 3 Months or Most Recently Relevant to Health Maintenance Insurance [employer] HMO Care Teams Java Developer With Security Clearance Relationship Specialty Start Date End Date Beckie Frey PA [address] [place] [id number] PCP - General Physician Butcher Meat 05/05/24
--- OUTSIDE RECORDS SUMMARY | 2025-11-18 08:46 | XMS_ITS | Data Portability ---
[facility] Address [address] [place] [address] Care Team Providers Care Stars Specialist Name Role Phone BECKIE JORGE Primary Care Provider Assessment Encounter Date Assessment Date Assessment LastModified by Organization Details LastModified Time 06/03/2025 06/03/2025 Sections of the HPI, exam and assessment completed by CHAITANYA Hayden student and have been reviewed by me. I agree with the exam findings, assessment and plan except where specifically documented or amended. -Beckie Jorge, [facility], [place] [email or web address] Not available 06/03/2025 14:32:50 Plan of Treatment Reminders Order Date Submit Date Provider Last Modified By Organization Details Last Modified Time Details Appointments None recorded. Lab HbA1c (hemoglobin A1c), blood 2024 025 [email or web address] In-Office Order, Internal Use Only DO Not Attach Compendium DO Not Attach Compendium, Do Not Delete/merge, [id number] 12:01:06 CMP, serum or plasma 2024 025 [facility], [address], [place], [address], 09:16:39 lipid panel, serum or plasma 2024 025 [facility], [address], [place], [address], 09:16:38 CBC w/ auto diff 2024 025 [facility], [address], [place], [address], 5 09:16:40 HbA1c (hemoglobin A1c), blood 2024 025 [email or web address] In-Office Order, Internal Use Only DO Not Attach Compendium DO Not Attach Compendium, Do Not Delete/merge, 5 14:06:41 HbA1c (hemoglobin A1c), blood 2023 024 [email or web address] In-Office Order, Internal Use Only DO Not Attach Compendium DO Not Attach Compendium, Do Not Delete/merge, 4 12:21:45 CMP, serum or plasma 2023 024 [facility], [address], [place], [address], 4 11:18:53 lipid panel, serum 2023 024 [facility], [address], [place], [address], 4 11:18:52 CBC w/ auto diff 2023 024 [facility], [address], [place], [address], 4 11:18:53 TSH + free T4, serum 2023 024 [facility], [address], [place], [address], 4 11:18:51 HbA1c (hemoglobin A1c), blood 2023 024 [email or web address] In-Office Order, Internal Use Only DO Not Attach Compendium DO Not Attach Compendium, Do Not Delete/merge, 4 10:15:07 microalbumi n/creatinin e, mass ratio, urine 2023 024 [facility], [address], [address], [place], [address], 4 11:18:51 Referral endocrinolo gy referral 2023 024 [facility] , [address], [place], [address], 5 12:31:16 Procedures None recorded. Surgeries None recorded. Imaging XR, knee, 3 view 2023 024 [facility], [address] [place] [address], [id number], 4 18:08:05 DEXA, axial skeleton + vertebral fracture assessment [address], [address] [place] [address], [place], [address], 4 07:52:57 LDCT, chest, for lung cancer screening [address], [address] [place] [address], [place], [address], 4 17:11:21 Medication Orders hydrochloro thiazide 25 mg tablet 2024 025 [facility] [address] [place], [address], 5 12:55:28 amlodipine 5 mg tablet 2024 025 [facility] [address], [address] [place], [address], 5 12:55:30 Trulicity 1.5 mg/0.5 mL subcutaneou s pen injector 2023 024 [facility] [address], [address] [place], [address], 5 16:58:58 metformin 1,000 mg tablet 2023 024 [facility] [address] [place], [address], 4 15:13:12 Patient TargetsNo targets recorded. Patient Instructions Encounter Date Encounter Id Patient Instructions Last Modified By Organization Details Last Modified Time 04/30/2024 [id number] A healthy lifestyle: care [facility] [email or web address] Not available 04/30/2024 10:21:33 03/03/2025 [id number] A healthy lifestyle: care instructions [email or web address] Not available 03/04/2025 08:26:47 06/03/2025 [id number] A healthy lifestyle: care [facility] maryvaleero Not available 06/03/2025 12:55:22 Reason for Referral Endocrinology Referral for A drenal hyperplasia Referring Physician: Beckie Jorge, Family Medicine, Encounter Date: 07/31/2024 Results Created Date Observation Date Name Description Value Unit Range Abnormal Flag Note LastModifiedBy Organization Detail LastModifiedTime 04/30/20 24 05/01/2024 ALBUM IN/CR EAT RATIO , CÉSARO M UR creatinine, urine 90.0 mg/dL notest ab. Not Available [facility] ([facility]) [address] [place], [address], 05/01/2024 11:18:51 04/30/20 24 05/01/2024 ALBUM IN/CR EAT RATIO , RANDO M UR albumin, urine 30.4 ug/mL notest ab. Not Available [facility] ([facility]) [address] [place], [address], 05/01/2024 11:18:51 04/30/20 24 05/01/2024 ALBUM IN/CR EAT RATIO , RANDO M UR alb/creat ratio 34 mg/g_ creat 0-29 above high normal Ria l: 0 - 29 Moder ately incre ased: 30 - 300 Sever carmela incre ased: >300 Not Available [facility] ([facility]) [address] [place], [address], 05/01/2024 11:18:51 04/30/20 24 05/01/2024 TSH+F REE T4 TSH 3.410 uIU/m L 0.450- 4.500 Not Available [facility] ([facility]) [address] [place], [address], 05/01/2024 11:18:51 04/30/20 24 05/01/2024 TSH+F REE T4 T4,free(dire ct) 1.14 NG/dL 0.82-1 .77 Not Available [facility] ([facility]) [address] [place], [address], 05/01/2024 11:18:51 04/30/20 24 05/01/2024 LIPID PANEL WITH LDL/H DL RATIO cholesterol, total 143 mg/dL 100-19 9 Not Available [facility] ([facility]) [address] [place], [address], 05/01/2024 11:18:52 04/30/20 24 05/01/2024 LIPID PANEL WITH LDL/H DL RATIO triglyceride s 151 mg/dL 0-149 above high normal Not Available [facility] ([facility]) [address] [place], [address], 05/01/2024 11:18:52 04/30/20 24 05/01/2024 LIPID PANEL WITH LDL/H DL RATIO HDL cholesterol 37 mg/dL >39 below low normal Not Available [facility] ([facility]) [address] [place], [address], 05/01/2024 11:18:52 04/30/20 24 05/01/2024 LIPID PANEL WITH LDL/H DL RATIO VLDL cholesterol kristie 26 mg/dL 5-40 Not Available [facility] ([facility]) [address] [place], [address], 05/01/2024 11:18:52 04/30/20 24 05/01/2024 LIPID PANEL WITH LDL/H DL RATIO LDL chol calc ([facility]) 80 mg/dL 0-99 Not Available [facility] ([facility]) [address] [place], [address], 05/01/2024 11:18:52 04/30/20 24 05/01/2024 LIPID PANEL WITH LDL/H DL RATIO LDL/HDL ratio 2.2 ratio 0.0-3. 2 LDL/H DL Ratio Men Women 1/2 Avg.R isk 1.0 1.5 Avg.R isk 3.6 3.2 2X Avg.R isk 6.2 5.0 3X Avg.R isk 8.0 6.1 Not Available [facility] ([facility]) [address] [place], [address], 05/01/2024 11:18:52 04/30/20 24 05/01/2024 COMP. METAB OLIC PANEL (14) glucose 99 mg/dL 70-99 Not Available [facility] ([facility]) [address] [place], [address], 05/01/2024 11:18:53 04/30/20 24 05/01/2024 COMP. METAB OLIC PANEL (14) BUN 32 mg/dL 8-27 above high normal Not Available [facility] ([facility]) [address] [place], [address], 05/01/2024 11:18:53 04/30/20 24 05/01/2024 COMP. METAB OLIC PANEL (14) creatinine 1.47 mg/dL 0.57-1 .00 above high normal Not Available [facility] ([facility]) [address] [place], [address], 05/01/2024 11:18:53 04/30/20 24 05/01/2024 COMP. METAB OLIC PANEL (14) eGFR 39 mL/mi n/1.7 3 >59 below low normal Not Available [facility] ([facility]) [address] [facility] [place], [address], 05/01/2024 11:18:53 04/30/20 24 05/01/2024 COMP. METAB OLIC PANEL (14) BUN/creatini ne ratio 22 12-28 Not Available [facility] ([facility]) [address] [facility] [place], [address], 05/01/2024 11:18:53 04/30/20 24 05/01/2024 COMP. METAB OLIC PANEL (14) sodium 144 mmol/ L 134-14 4 Not Available [facility] ([facility]) [address] [facility] [place], [address], 05/01/2024 11:18:53 04/30/20 24 05/01/2024 COMP. METAB OLIC PANEL (14) potassium 4.6 mmol/ L 3.5-5. 2 Not Available [facility] ([facility]) [address] [facility] [place], [address], 05/01/2024 11:18:53 04/30/20 24 05/01/2024 COMP. METAB OLIC PANEL (14) chloride 111 mmol/ L 96-106 above high normal Not Available [facility] ([facility]) [address] [facility] [place], [address], 05/01/2024 11:18:53 04/30/20 24 05/01/2024 COMP. METAB OLIC PANEL (14) carbon dioxide, total 17 mmol/ L 20-29 below low normal Not Available [facility] ([facility]) [address] [facility] [place], [address], 05/01/2024 11:18:53 04/30/20 24 05/01/2024 COMP. METAB OLIC PANEL (14) calcium 8.9 mg/dL 8.7-10 .3 Not Available [facility] ([facility]) [address] [place], [address], 05/01/2024 11:18:53 04/30/20 24 05/01/2024 COMP. METAB OLIC PANEL (14) protein, total 6.5 g/dL 6.0-8. 5 Not Available [facility] ([facility]) [address] [place], [address], 05/01/2024 11:18:53 04/30/20 24 05/01/2024 COMP. METAB OLIC PANEL (14) albumin 4.2 g/dL 3.9-4. 9 Not Available [facility] ([facility]) [address] [place], [address], 05/01/2024 11:18:53 04/30/20 24 05/01/2024 COMP. METAB OLIC PANEL (14) globulin, total 2.3 g/dL 1.5-4. 5 Not Available [facility] ([facility]) [address] [place], [address], 05/01/2024 11:18:53 04/30/20 24 05/01/2024 COMP. METAB OLIC PANEL (14) A/G ratio 1.8 Not Available [facility] ([facility]) [address] [place], [address], 05/01/2024 11:18:53 04/30/20 24 05/01/2024 COMP. METAB OLIC PANEL (14) bilirubin, total 0.7 mg/dL 0.0-1. 2 Not Available [facility] ([facility]) [address] [place], [address], 05/01/2024 11:18:53 04/30/20 24 05/01/2024 COMP. METAB OLIC PANEL (14) alkaline phosphatase 115 IU/L 44-121 Not Available [facility] ([facility]) [address] [place], [address], 05/01/2024 11:18:53 04/30/20 24 05/01/2024 COMP. METAB OLIC PANEL (14) AST (SGOT) 16 IU/L 0-40 Not Available [facility] ([facility]) [address] [place], [address], 05/01/2024 11:18:53 04/30/20 24 05/01/2024 COMP. METAB OLIC PANEL (14) ALT (SGPT) 17 IU/L 0-32 Not Available [facility] ([facility]) [address] [facility] [place], [address], 05/01/2024 11:18:53 04/30/20 24 05/01/2024 CBC WITH DIFFE RENTI AL/PL ATELE T WBC 5.0 x10e3 /uL 3.4-10 .8 Not Available [facility] ([facility]) [address] [facility], [place], [address], 05/01/2024 11:18:53 04/30/20 24 05/01/2024 CBC WITH DIFFE RENTI AL/PL ATELE T RBC 3.96 x10e6 /uL 3.77-5 .28 Not Available [facility] ([facility]) [address] [facility] [place], [address], 05/01/2024 11:18:53 04/30/20 24 05/01/2024 CBC WITH DIFFE RENTI AL/PL ATELE T hemoglobin 12.2 g/dL 11.1-1 5.9 Not Available [facility] ([facility]) [address] [facility] [place], [address], 05/01/2024 11:18:53 04/30/20 24 05/01/2024 CBC WITH DIFFE RENTI AL/PL ATELE T hematocrit 38.0 % 34.0-4 6.6 Not Available [facility] ([facility]) [address] [place], [address], 05/01/2024 11:18:53 04/30/20 24 05/01/2024 CBC WITH DIFFE RENTI AL/PL ATELE T MCV 96 fL 79-97 Not Available [facility] ([facility]) [address] [facility], [place], [address], 05/01/2024 11:18:53 04/30/20 24 05/01/2024 CBC WITH DIFFE RENTI AL/PL ATELE T MCH 30.8 pg 26.6-3 3.0 Not Available [facility] ([facility]) [address] [facility], [place], [address], 05/01/2024 11:18:53 04/30/20 24 05/01/2024 CBC WITH DIFFE RENTI AL/PL ATELE T MCHC 32.1 g/dL 31.5-3 5.7 Not Available [facility] ([facility]) [address] [facility], [place], [address], 05/01/2024 11:18:53 04/30/20 24 05/01/2024 CBC WITH DIFFE RENTI AL/PL ATELE T RDW 12.1 % 11.7-1 5.4 Not Available [facility] ([facility]) [address] [facility], [place], [address], 05/01/2024 11:18:53 04/30/20 24 05/01/2024 CBC WITH DIFFE RENTI AL/PL ATELE T platelets 218 x10e3 /uL 150-45 0 Not Available [facility] ([facility]) [address] [facility], [place], [address], 05/01/2024 11:18:53 04/30/20 24 05/01/2024 CBC WITH DIFFE RENTI AL/PL ATELE T neutrophils 59 % notest ab. Not Available [facility] ([facility]) [address] [facility], [place], [address], 05/01/2024 11:18:53 04/30/20 24 05/01/2024 CBC WITH DIFFE RENTI AL/PL ATELE T lymphs 27 % notest ab. Not Available [facility] ([facility]) [address] [facility], [place], [address], 05/01/2024 11:18:53 04/30/20 24 05/01/2024 CBC WITH DIFFE RENTI AL/PL ATELE T monocytes 7 % notest ab. Not Available [facility] ([facility]) [address] [facility], [place], [address], 05/01/2024 11:18:53 04/30/20 24 05/01/2024 CBC WITH DIFFE RENTI AL/PL ATELE T eos 6 % notest ab. Not Available [facility] ([facility]) [address] [facility], [place], [address], 05/01/2024 11:18:53 04/30/20 24 05/01/2024 CBC WITH DIFFE RENTI AL/PL ATELE T basos 1 % notest ab. Not Available [facility] ([facility]) [address] [facility], [place], [address], 05/01/2024 11:18:53 04/30/20 24 05/01/2024 CBC WITH DIFFE RENTI AL/PL ATELE T neutrophils (absolute) 2.9 x10e3 /uL 1.4-7. 0 Not Available [facility] ([facility]) [address] [facility], [place], [address], 05/01/2024 11:18:53 04/30/20 24 05/01/2024 CBC WITH DIFFE RENTI AL/PL ATELE T lymphs (absolute) 1.3 x10e3 /uL 0.7-3. 1 Not Available [facility] ([facility]) [address] [facility], [place], [address], 05/01/2024 11:18:53 04/30/20 24 05/01/2024 CBC WITH DIFFE RENTI AL/PL ATELE T monocytes(ab solute) 0.4 x10e3 /uL 0.1-0. 9 Not Available [facility] ([facility]) [address] [facility], [place], [address], 05/01/2024 11:18:53 04/30/20 24 05/01/2024 CBC WITH DIFFE RENTI AL/PL ATELE T eos (absolute) 0.3 x10e3 /uL 0.0-0. 4 Not Available [facility] ([facility]) [address] [facility], [place], [address], 05/01/2024 11:18:53 04/30/20 24 05/01/2024 CBC WITH DIFFE RENTI AL/PL ATELE T baso (absolute) 0.1 x10e3 /uL 0.0-0. 2 Not Available [facility] ([facility]) [address] [facility], [place], [address], 05/01/2024 11:18:53 04/30/20 24 05/01/2024 CBC WITH DIFFE RENTI AL/PL ATELE T immature granulocytes 0 % notest ab. Not Available [facility] ([facility]) [address] [facility], [place], [address], 05/01/2024 11:18:53 04/30/20 24 05/01/2024 CBC WITH DIFFE RENTI AL/PL ATELE T immature grans (abs) 0.0 x10e3 /uL 0.0-0. 1 Not Available [facility] ([facility]) [address] [facility], [place], [address], 05/01/2024 11:18:53 04/30/20 24 04/30/2024 HbA1c (hemo globi n A1c), blood HbA1c 5.9% Not Available In-Office Order Internal Use Only DO Not Attach Compendium DO Not Attach Compendium, Do Not Delete/merge, [id number] 04/30/2024 10:09:13 07/31/20 24 07/31/2024 HbA1c (hemo globi n A1c), blood HbA1c 6.2% Not Available In-Office Order Internal Use Only DO Not Attach Compendium DO Not Attach Compendium, Do Not Delete/merge, [id number] 07/31/2024 12:21:35 03/03/20 25 03/03/2025 HbA1c (hemo globi n A1c), blood HbA1c 6.2% Not Available In-Office Order Internal Use Only DO Not Attach Compendium DO Not Attach Compendium, Do Not Delete/merge, [id number] 03/03/2025 14:06:30 04/30/20 25 05/01/2025 Hemog lobin A1c/H emogl obin. total in Blood hemoglobin A1C/hemoglob in.total in blood 6.5 % low: 4.8%hi gh: 5.6% high Predi abete s: 5.7 - 6.4 Diabe francois: >6.4 Glyce tiera contr ol for adult s with diabe francois: <7.0 Not Available Not Available 06/03/2025 04:23:05 04/30/20 25 05/01/2025 Hemog lobin A1c/H emogl obin. total in Blood Unknown Analyte Perfor med at: 01 - [facility] mary kate [place] [id number] [facility] or: Christiano robledo PhD, Not Available Not Available 04:23:05 04/30/20 25 05/01/2025 Hemog lobin A1c/H emogl obin. total in Blood interpretati on and review of laboratory results Abnorm al Not Available Not Available 04:23:05 06/03/20 25 06/04/2025 LIPID PANEL WITH LDL/H DL RATIO cholesterol, total 133 mg/dL 100-19 9 Not Available [facility] ([facility]) [address] [facility], [place], [address], 06/04/2025 09:16:37 06/03/20 25 06/04/2025 LIPID PANEL WITH LDL/H DL RATIO triglyceride s 115 mg/dL 0-149 Not Available [facility] ([facility]) [address] [facility], [place], [address], 06/04/2025 09:16:37 06/03/20 25 06/04/2025 LIPID PANEL WITH LDL/H DL RATIO HDL cholesterol 43 mg/dL >39 Not Available [facility] ([facility]) [address] [place], [address], 06/04/2025 09:16:37 06/03/20 25 06/04/2025 LIPID PANEL WITH LDL/H DL RATIO VLDL cholesterol kristie 21 mg/dL 5-40 Not Available [facility] ([facility]) [address] [facility], [place], [address], 06/04/2025 09:16:37 06/03/20 25 06/04/2025 LIPID PANEL WITH LDL/H DL RATIO LDL chol calc (nih) 69 mg/dL 0-99 Not Available [facility] ([facility]) [address] [facility], [place], [address], 06/04/2025 09:16:37 06/03/20 25 06/04/2025 LIPID PANEL WITH LDL/H DL RATIO LDL/HDL ratio 1.6 ratio 0.0-3. 2 LDL/H DL Ratio Men Women 1/2 Avg.R isk 1.0 1.5 Avg.R isk 3.6 3.2 2X Avg.R isk 6.2 5.0 3X Avg.R isk 8.0 6.1 Not Available [facility] ([facility]) [address] [facility], [place], [address], 06/04/2025 09:16:37 06/03/20 25 06/04/2025 COMP. METAB OLIC PANEL (14) glucose 96 mg/dL 70-99 Not Available [facility] ([facility]) [address] [place], [address], 06/04/2025 09:16:39 06/03/20 25 06/04/2025 COMP. METAB OLIC PANEL (14) BUN 37 mg/dL 8-27 above high normal Not Available [facility] ([facility]) [address] [place], [address], 06/04/2025 09:16:39 06/03/20 25 06/04/2025 COMP. METAB OLIC PANEL (14) creatinine 1.38 mg/dL 0.57-1 .00 above high normal Not Available [facility] ([facility]) [address] [place], [address], 06/04/2025 09:16:39 06/03/20 25 06/04/2025 COMP. METAB OLIC PANEL (14) eGFR 41 mL/mi n/1.7 3 >59 below low normal Not Available [facility] ([facility]) [address] [place], [address], 06/04/2025 09:16:39 06/03/20 25 06/04/2025 COMP. METAB OLIC PANEL (14) BUN/creatini ne ratio 27 12-28 Not Available [facility] ([facility]) [address] [place], [address], 06/04/2025 09:16:39 06/03/20 25 06/04/2025 COMP. METAB OLIC PANEL (14) sodium 141 mmol/ L 134-14 4 Not Available [facility] ([facility]) [address] [place], [address], 06/04/2025 09:16:39 06/03/20 25 06/04/2025 COMP. METAB OLIC PANEL (14) potassium 4.8 mmol/ L 3.5-5. 2 Not Available [facility] ([facility]) [address] [place], [address], 06/04/2025 09:16:39 06/03/20 25 06/04/2025 COMP. METAB OLIC PANEL (14) chloride 103 mmol/ L 96-106 Not Available [facility] ([facility]) [address] [place], [address], 06/04/2025 09:16:39 06/03/20 25 06/04/2025 COMP. METAB OLIC PANEL (14) carbon dioxide, total 20 mmol/ L 20-29 Not Available [facility] ([facility]) [address] [place], [address], 06/04/2025 09:16:39 06/03/20 25 06/04/2025 COMP. METAB OLIC PANEL (14) calcium 9.6 mg/dL 8.7-10 .3 Not Available [facility] ([facility]) [address] [place], [address], 06/04/2025 09:16:39 06/03/20 25 06/04/2025 COMP. METAB OLIC PANEL (14) protein, total 6.7 g/dL 6.0-8. 5 Not Available [facility] ([facility]) [address] [place], [address], 06/04/2025 09:16:39 06/03/20 25 06/04/2025 COMP. METAB OLIC PANEL (14) albumin 4.4 g/dL 3.9-4. 9 Not Available [facility] ([facility]) [address] [place], [address], 06/04/2025 09:16:39 06/03/20 25 06/04/2025 COMP. METAB OLIC PANEL (14) globulin, total 2.3 g/dL 1.5-4. 5 Not Available [facility] ([facility]) [address] [place], [address], 06/04/2025 09:16:39 06/03/20 25 06/04/2025 COMP. METAB OLIC PANEL (14) bilirubin, total 0.7 mg/dL 0.0-1. 2 Not Available [facility] ([facility]) [address] [place], [address], 06/04/2025 09:16:39 06/03/20 25 06/04/2025 COMP. METAB OLIC PANEL (14) alkaline phosphatase 96 IU/L 44-121 Not Available [facility] ([facility]) [address] [facility], [place], [address], 06/04/2025 09:16:39 06/03/20 25 06/04/2025 COMP. METAB OLIC PANEL (14) AST (SGOT) 14 IU/L 0-40 Not Available [facility] ([facility]) [address] [facility] [place], [address], 06/04/2025 09:16:39 06/03/20 25 06/04/2025 COMP. METAB OLIC PANEL (14) ALT (SGPT) 15 IU/L 0-32 Not Available [facility] ([facility]) [address] [facility], [place], [address], 06/04/2025 09:16:39 06/03/20 25 06/04/2025 CBC WITH DIFFE RENTI AL/PL ATELE T WBC 5.6 x10e3 /uL 3.4-10 .8 Not Available [facility] ([facility]) [address] [place], [address], 06/04/2025 09:16:40 06/03/20 25 06/04/2025 CBC WITH DIFFE RENTI AL/PL ATELE T RBC 3.58 x10e6 /uL 3.77-5 .28 below low normal Not Available [facility] ([facility]) [address] [place], [address], 06/04/2025 09:16:40 06/03/20 25 06/04/2025 CBC WITH DIFFE RENTI AL/PL ATELE T hemoglobin 11.0 g/dL 11.1-1 5.9 below low normal Not Available [facility] ([facility]) [address] [facility], [place], [address], 06/04/2025 09:16:40 06/03/20 25 06/04/2025 CBC WITH DIFFE RENTI AL/PL ATELE T hematocrit 35.0 % 34.0-4 6.6 Not Available [facility] ([facility]) [address] [facility], [place], [address], 06/04/2025 09:16:40 06/03/20 25 06/04/2025 CBC WITH DIFFE RENTI AL/PL ATELE T MCV 98 fL 79-97 above high normal Not Available [facility] ([facility]) [address] [facility], [place], [address], 06/04/2025 09:16:40 06/03/20 25 06/04/2025 CBC WITH DIFFE RENTI AL/PL ATELE T MCH 30.7 pg 26.6-3 3.0 Not Available [facility] ([facility]) [address] [facility], [place], [address], 06/04/2025 09:16:40 06/03/20 25 06/04/2025 CBC WITH DIFFE RENTI AL/PL ATELE T MCHC 31.4 g/dL 31.5-3 5.7 below low normal Not Available [facility] ([facility]) [address] [facility], [place], [address], 06/04/2025 09:16:40 06/03/2006/04/2025 CBC WITH DIFFE RENTI AL/PL ATELE T RDW 12.5 % 11.7-1 5.4 Not Available [facility] ([facility]) [address] [facility], [place], [address], 06/04/2025 09:16:40 06/03/20 25 06/04/2025 CBC WITH DIFFE RENTI AL/PL ATELE T platelets 234 x10e3 /uL 150-45 0 Not Available [facility] ([facility]) [address] [facility], [place], [address], 06/04/2025 09:16:40 06/03/20 25 06/04/2025 CBC WITH DIFFE RENTI AL/PL ATELE T neutrophils 57 % notest ab. Not Available [facility] ([facility]) [address] [facility], [place], [address], 06/04/2025 09:16:40 06/03/20 25 06/04/2025 CBC WITH DIFFE RENTI AL/PL ATELE T lymphs 30 % notest ab. Not Available [facility] ([facility]) [address] [facility], [place], [address], 06/04/2025 09:16:40 06/03/20 25 06/04/2025 CBC WITH DIFFE RENTI AL/PL ATELE T monocytes 6 % notest ab. Not Available [facility] ([facility]) [address] [facility], [place], [address], 06/04/2025 09:16:40 06/03/20 25 06/04/2025 CBC WITH DIFFE RENTI AL/PL ATELE T eos 6 % notest ab. Not Available [facility] ([facility]) [address] [facility], [place], [address], 06/04/2025 09:16:40 06/03/20 25 06/04/2025 CBC WITH DIFFE RENTI AL/PL ATELE T basos 1 % notest ab. Not Available [facility] ([facility]) [address] [facility], [place], [address], 06/04/2025 09:16:40 06/03/20 25 06/04/2025 CBC WITH DIFFE RENTI AL/PL ATELE T neutrophils (absolute) 3.2 x10e3 /uL 1.4-7. 0 Not Available [facility] ([facility]) [address] [facility], [place], [address], 06/04/2025 09:16:40 06/03/20 25 06/04/2025 CBC WITH DIFFE RENTI AL/PL ATELE T lymphs (absolute) 1.7 x10e3 /uL 0.7-3. 1 Not Available [facility] ([facility]) [address] [facility], [place], [address], 06/04/2025 09:16:40 06/03/20 25 06/04/2025 CBC WITH DIFFE RENTI AL/PL ATELE T monocytes(ab solute) 0.4 x10e3 /uL 0.1-0. 9 Not Available [facility] ([facility]) [address] [facility], [place], [address], 06/04/2025 09:16:40 06/03/20 25 06/04/2025 CBC WITH DIFFE RENTI AL/PL ATELE T eos (absolute) 0.4 x10e3 /uL 0.0-0. 4 Not Available [facility] ([facility]) [address] [facility], [place], [address], 06/04/2025 09:16:40 06/03/20 25 06/04/2025 CBC WITH DIFFE RENTI AL/PL ATELE T baso (absolute) 0.1 x10e3 /uL 0.0-0. 2 Not Available [facility] ([facility]) [address] [facility], [place], [address], 06/04/2025 09:16:40 06/03/20 25 06/04/2025 CBC WITH DIFFE RENTI AL/PL ATELE T immature granulocytes 0 % notest ab. Not Available [facility] ([facility]) [address] [facility], [place], [address], 06/04/2025 09:16:40 06/03/20 25 06/04/2025 CBC WITH DIFFE RENTI AL/PL ATELE T immature grans (abs) 0.0 x10e3 /uL 0.0-0. 1 Not Available [facility] ([facility]) [address], [place], [address], 06/04/2025 09:16:40 08/06/20 25 08/08/2025 cultu re, urine culture abnormal CULTU RE, URINE , ROUTI NE Micro Numbe r: [id number] Test Statu s: Final Speci men Sourc e: Urine clean Speci men Quali ty: Adequ ate Resul t: Great er than 100,0 00 CFU/m L of Esche lisa a coli COMME NT: Addit ional non-p redom inati ng organ ism(s ) isola starr. These organ isms, commo nly found on exter nal and inter nal genit mitra, are consi dered colon izers . No furth er testi ng perfo rmed. E.col i ----- ----- ----- - INT TIERA AMOX/ CLAVU LANAT E S 4 AMP/S ULBAC CARRINGTON S <=2 CEFAZ TING NR <=1 2 CEFEP UGO S <=0.1 2 CEFTA ZIDIM E S <=0.5 CEFTR IAXON E S <=0.2 5 CIPRO FLOXA FRANCOISE S <=0.0 6 GENTA MICIN S <=1 IMIPE NEM S <=0.2 5 LEVOF LOXAC IN S <=0.1 2 MEROP ENEM S <=0.2 5 NITRO FURAN TOIN S <=16 PIP/T AZOBA CTAM S <=4 TRIME THOPR IM/MILLER LFA S <=20 S = Susce ptibl e I = Inter media te R = Resis tant NS = Not susce ptibl e SDD = Susce ptibl e Dose Depen dent * = Not Teste d NR = Not Repor starr NN = See Thera py Comme nts THERA PY COMME NTS Note 1: For infec tions other than uncom plica starr UTI cause d by E. coli, K. pneum oniae or P. mirab ilis: Cefaz ting is resis tant if TIERA > or = 8 mcg/m L. (Dist ingui shing susce ptibl e versu s inter media te for isola francois with TIERA < or = 4 mcg/m L requi res addit ional testi ng.) Note 2: For uncom plica starr UTI cause d by E. coli, K. pneum oniae or P. mirab ilis: Cefaz ting is susce ptibl e if TIERA <32 mcg/m L and predi cts susce ptibl e to the oral agent s cefac maryana, cefdi carmen, cefpo doxim e, cefpr ozil, cefur oxime , cepha lexin and lorac arbef . Test Perfo rmed at: [facility] [employer] [facility] [address] [address] [place] [employer] [address] RANDELL SHARP MD Not Available Not Available 09/03/2025 05:58:34 08/06/2008/08/2025 cultu re, urine lab interpretati on Abnorm al Not Available Not Available 05:58:34 08/06/2008/06/2025 urina lysis panel , auto glucose UA neg Not Available Not Dee Dee ilable 09/03/2025 05:58:34 08/06/20 25 08/06/2025 urina lysis panel , auto bilirubin UA poct neg Not Available Not Available 08/19 05:58:34 08/06/20 25 08/06/2025 urina lysis panel , auto ketones UA poct neg Not Available Not Available 08/19 05:58:34 08/06/2008/06/2025 urina lysis panel , auto specific gravity UA 1.015 Not Available Not Available 05:58:34 08/06/20 25 08/06/2025 urina lysis panel , auto blood urine poct neg Not Available Not Available 08/19 05:58:34 08/06/20 25 08/06/2025 urina lysis panel , auto pH UA 6 Not Available Not Availa ble 09/03/2025 05:58:34 08/06/20 25 08/06/2025 urina lysis panel , auto protein UA +-15mg /dl Not Available Not Available 05:58:34 08/06/20 25 08/06/2025 urina lysis panel , auto urobilinogen UA 0.2mg/ dl Not Available Not Available 05:58:34 08/06/20 25 08/06/2025 urina lysis panel , auto nitrite UA neg Not Available Not Dee Dee ilable 09/03/2025 05:58:34 08/06/20 25 08/06/2025 urina lysis panel , auto WBC UA 2+125l eu/ul Not Available Not Available 05:58:34 09/03/20 25 09/03/2025 HbA1c (hemo globi n A1c), blood HbA1C 6.2 % Not Available In-Office Order Internal Use Only DO Not Attach Compendium DO Not Attach Compendium, Do Not Delete/merge, [id number] 09/03/2025 12:00:34 05/07/20 24 05/06/2024 XR, knee, 3 view No observ ation record ed. [address], [address], 05/08/2024 12:36:04 06/17/20 24 06/17/2024 DEXA, axial skele ton + verte bral fract ure asses sment No observ ation record ed. [facility] (Imaging) [address] [place] [address], [id number], 06/20/2024 10:37:39 07/18/20 24 07/18/2024 MAMMO , scree juliet, bilat eral No observ ation record ed. [address], [address], 07/25/2024 14:39:43 04/08/20 25 04/06/2025 CT, abdom en + pelvi s, w/o contr ast No observ ation record ed. [address], [address], 04/21/2025 09:07:01 04/20/20 25 04/06/2025 CT, abdom en + pelvi s, w/o contr ast No observ ation record ed. [facility] [address], [place], [address], 04/21/2025 09:06:51 09/08/20 25 09/07/2025 MAMMO , scree juliet, bilat eral No observ ation record ed. [email or web address] [facility] [address], [place], [address], 09/15/2025 08:12:30 09/08/20 25 09/07/2025 MAMMO , scree juliet, bilat eral No observ ation record ed. [id number] [facility] [address], [place], [address], 09/15/2025 08:12:30 Result Notes None recorded. Problems Name Problem SNOMED Code Status Onset Date Resolution Date Notes Provider Name and Address Organization Details Recorded Time Hypertens seda disorder 00265181 Active 2017 Not Available [employer] 3 17:06:42 Hyperchol esterolem ia 89625355 Active 2017 Not Available [employer] 3 17:06:42 Serum creatinin e above reference range 830861319 Active 2020 Not Available [employer] 3 17:06:42 Overflow incontine nce of urine 354368341 Active 2021 Not Available [employer] 3 17:06:42 Screening for malignant neoplasm of colon Active 2021 due for next colonoscop y in 2018 report in chart Not Available [employer] 3 17:06:42 Chronic kidney disease stage 3A 632629510 Active 2021 CHAITANYA MCELROY Attn: Accounting ,[address] [place], [address] , [place] [facility] 4 12:30:06 Essential hypertens ion 43675602 Active 2021 Not Available [employer] 3 17:06:42 Screening for malignant neoplasm of breast Active 2021 CHAITANYA MCELROY Attn: Accounting ,[address] [facility], [place], [address] , [facility] 4 10:04:04 Tobacco dependenc e in remission 525045047 Active 2022 CHAITANYA MCELROY Attn: Accounting ,[address] [facility], [place], [address] , [facility] 3 08:33:42 Chronic kidney disease stage 3B 855992150 Active 2023 CHAITANYA MCELROY Attn: Accounting ,[address] [facility], [place], [address] , [facility] 4 12:30:03 Type 2 diabetes mellitus without complicat ion 029956215 Active 2023 CHAITANYA MCELROY Attn: Accounting ,[address] [facility], [place], [address] , [facility] 4 08:47:40 Osteopeni a 764797772 Active 2023 CHAIATNYA MCELROY Attn: Accounting ,[address] [facility], [place], [address] , [facility] 4 09:02:44 Notes:pt states she has a we ak bladder constantly uses the restroom. Some problems listed in Documents: #[id number], #[id number], #[id number], #[id number], #[id number], #[id number] could not be added to this patient's chart. Please review these documents and add these problems to the patient's chart manually as needed. Problem Notes None recorded. Procedures Surgical History Date Name Laterality Status Provider Name and Address Organization Details Recorded Time 11/19/19 Date of Last Mammogram completed Nelsy Andrews MA [facility] 11/16/2021 10:21:17 11/19/19 20 Date of Last Pap Smear completed Nelsy Andrews MA [facility] 11/16/2021 10:21:20 11/19/19 12 total hysterectomy with removal of both tubes and ovaries completed CHAITANYA MCELROY Attn: Accounting, [address] , [place], [address], [facility] 08/17/2023 11:20:37 section completed Cristela Maguire MA [facility] 11/14/2018 11:41:12 Cholecystectomy completed Cristela Maguire MA [facility] 11/14/2018 11:41:22 Imaging Results None recorded. Procedure Notes None recorded. Medical Equipment None Reported. Allergies Allergen ID Allergen Name Allergen Category Reaction Reaction Severity Criticality Documentation Date Start Date Code Code System Note Provider Name and Address Organization Details Recorded Time 20911220 Adhesive agent (substanc e) environme nt,medica tion Not available Not available Not available 09/15/20252018 82570 0007 SNOMED Surgi kristie tape cause s rash unrec ogniz ed react ion (text : Unkno wn, code: 37777 5006) (from exter nal sourc e) Not Available [employer] - prod 17:36:34 20911221 menthol medicatio n Not available Not available Not available 09/15/20252022 6750 RxNorm unrec ogniz ed react ion (text : Other , code: 69864 07) (from exter nal sourc e) Not Available [employer] - prod 17:36:36 Medications Name Sig Start Date Stop Date Status Note LastModified by Organization Details LastModified Time OneTouch Ultra Blue Test Strips use to check blood sugars daily 01/22 completed Not Available Not Available Not Available losartan 50 mg tablet Take 1 tablet every day by oral route. 02/15 completed Not Available Not Available Not Available amoxicill in 500 mg capsule 07/09 completed Not Available Not Available Not Available metformin 500 mg tablet TAKE 1 TABLET BY MOUTH TWICE DAILY 01/23 completed increase to 2 tabs twice a day, f/u when script runs out Not Available Not Available Not Available atorvasta tin 20 mg tablet TAKE 1 TABLET BY MOUTH ONCE DAILY AT BEDTIME active Not Available Not Available No t Available clarithro mycin 500 mg tablet 07/09 completed Not Available Not Available Not Available glipizide 10 mg tablet TAKE 1 TABLET BY MOUTH TWICE DAILY 06/20 completed Not Available Not Available Not Available pioglitaz one 45 mg tablet TAKE 1 TABLET BY MOUTH ONCE DAILY 01/23 completed Not Available Not Available Not Available amlodipin e 5 mg tablet TAKE 1 TABLET BY MOUTH ONCE DAILY IN THE MORNING FOR HIGH BLOOD PRESSURE 2024 active Not Available Not Available Not Avai lable ciproflox acin 500 mg tablet TAKE 1 TABLET BY MOUTH TWICE DAILY 09/03 completed Not Available Not Available Not Available sulfameth oxazole 800 mg-trimet hoprim 160 mg tablet Take 1 tablet every 12 hours by oral route. 02/15 completed Not Available Not Available Not Available omeprazol e 40 mg capsule,d elayed release TAKE 1 CAPSULE BY MOUTH ONCE DAILY 01/22 completed Not Available Not Available Not Available aspirin 81 mg tablet,de layed release Take 1 tablet every day by oral route. 09/03 completed OTC Not Available Not Available Not Available amoxicill in 875 mg tablet Take 1 tablet every 12 hours by oral route. 07/09 completed Not Available Not Available Not Available OneTouch Ultra Test strips USE 1 STRIP TO CHECK GLUCOSE ONCE DAILY active Not Available Not Available No t Available dexametha sone 1 mg tablet TAKE 1 TABLET BY MOUTH A ONE TIME DOSE FOR TESTING PURPOSE. PLEASE TAKE AROUND 11PM AND NEXT DAY GO FOR BLOOD WORK AT 8AM. 09/03 completed Not Available Not Available Not Available metformin 1,000 mg tablet TAKE 1 TABLET BY MOUTH TWICE DAILY WITH MEALS 2024 active Not Available Not Available Not Avai lable nicotine 21 mg/24 hr daily transderm al patch Apply 1 patch every day by transder mal route. 02/15 completed Not Available Not Available Not Available oxybutyni n chloride ER 5 mg tablet,ex tended release 24 hr Take 1 tablet every day by oral route in the morning for 30 days. 06/20 completed Not Available Not Available Not Available alcohol swabs Apply 1 pad every day by topical route for 30 days. 09/03 completed Not Available Not Available Not Available hydrochlo rothiazid e 25 mg tablet TAKE 1 TABLET BY MOUTH ONCE DAILY active Not Available Not Available No t Available albuterol sulfate HFA 90 mcg/actua tion aerosol inhaler Inhale 2 puffs every 4 hours by inhalati on route. 02/15 completed Not Available Not Available Not Available losartan 100 mg tablet Take 1 tablet by mouth once daily 2024 active Not Available Not Available Not Avai lable ciproflox acin 0.3 %-dexamet hasone 0.1 % ear drops,alyssa pension INSTILL 4 DROPS INTO AFFECTED EAR(S) BY OTIC ROUTE 2 TIMES PER DAY FOR 7 DAYS 04/27 completed Not Available Not Available Not Available OneTouch UltraSoft Lancets USE TO CHECK BLOOD SUGARS DAILY active Not Available Not Available No t Available omega-3 acid ethyl esters 1 gram capsule Take 2 capsules twice a day by oral route after meals for 30 days. 01/23 completed Not Available Not Available Not Available omeprazol e 1 a day everyday 02/15 completed Not Available Not Available Not Available Vascepa 1 gram capsule Take 2 capsules daily after meals 01/23 completed Not Available Not Available Not Available Invokana 100 mg tablet TAKE ONE TABLET BY MOUTH EVERY DAY 01/07 completed Not Available Not Available Not Available Victoza 3-Matty 0.6 mg/0.1 mL (18 mg/3 mL) subcutane ous pen injector Inject 1.8 mg every day by subcutan eous route as directed for 30 days, for diabetes . 01/07 completed Not Available Not Available Not Available Jardiance 10 mg tablet TAKE 1 TABLET BY MOUTH ONCE DAILY 09/23 completed Not Available Not Available Not Available Trulicity 1.5 mg/0.5 mL subcutane ous pen injector INJECT 1.5MG SUBCUTAN EOUSLY ONCE WEEKLY DIRECTED 01/07 completed Not Available Not Available Not Available Trulicity 0.75 mg/0.5 mL subcutane ous pen injector INJECT 0.75 MG SUBCUTAN EOUSLY ONCE WEEKLY DIRECTED . 07/31 completed Not Available Not Available Not Available TechLITE Pen Needle 32 gauge x 5/32 USE WITH VICTOZA DAILY 01/07 completed Not Available Not Available Not Available Ozempic 0.25 mg or 0.5 mg (2 mg/1.5 mL) subcutane ous pen injector Inject 0.25 mg every week by subcutan eous route as directed for 30 days. 09/25 completed Not Available Not Available Not Available OneTouch Ultra Blue Test Strip 01/22 completed Not Available Not Available Not Available OneTouch Ultra2 Meter USE 1 TO CHECK GLUCOSE ONCE DAILY active Not Available Not Available No t Available OneTouch Delica Plus Lancet 33 gauge USE TO CHECK BLOOD SUGAR ONCE DAILY active Not Available Not Available No t Available Mounjaro 2.5 mg/0.5 mL subcutane ous pen injector INJECT 1 SYRINGE SUBCUTAN EOUSLY ONCE A WEEK 01/07 completed Not Available Not Available Not Available Ozempic 0.25 mg or 0.5 mg (2 mg/3 mL) subcutane ous pen injector Inject 0.25 mg every week by subcutan eous route as directed for 30 days, for diabetes . 01/07 completed Not Available Not Available Not Available Vitals Date Recorded Body height Body mass index (BMI) Body weight Oxygen saturation Heart rate Respiratory rate Systolic And Diastolic Provider Name and Address Organization Details Last Updated DateTime 5 152.4 cm 36.9 kg/m2 73910.6 6 g 98 % 87 /min 16 /min 145/85 mm[Hg] Lauren Vergara MA [facility] 5 14:03:31 Date Recorded Body height Body mass index (BMI) Body weight Oxygen saturation Heart rate Respiratory rate Systolic And Diastolic Provider Name and Address Organization Details Last Updated DateTime 4 152.4 cm 37.6 kg/m2 70577.8 4 g 98 % 61 /min 17 /min 132/79 mm[Hg] Raysa Gonzalez MA [facility] 4 10:05:56 Date Recorded Body height Body mass index (BMI) Body weight Oxygen saturation Heart rate Respiratory rate Systolic And Diastolic Systolic And Diastolic Provider Name and Address Organization Details Last Updated DateTime 5 152.4 cm 37.4 kg/m2 21886.5 4 g 98 % 77 /min 16 /min 158/79 mm[Hg] 149/82 mm[Hg] Raysa Gonzalez MA [facility] 5 11:54:26 Date Recorded Systolic And Diastolic Provider Name and Address Organization Details Last Updated DateTime 07/31/2024 130/78 mm[Hg] CHAITANYA MCELROY Attn: Accounting,[address] [place], [address], [facility] 08/03/2024 08:57:44 Date Recorded Body height Body mass index (BMI) Body weight Oxygen saturation Heart rate Respiratory rate Systolic And Diastolic Provider Name and Address Organization Details Last Updated DateTime 4 152.4 cm 37.5 kg/m2 20120.4 4 g 99 % 75 /min 16 /min 174/80 mm[Hg] Raysa Gonzalez MA [facility] 4 12:17:43 Date Recorded Body height Body mass index (BMI) Body weight Oxygen saturation Heart rate Respiratory rate Systolic And Diastolic Provider Name and Address Organization Details Last Updated DateTime 5 152.4 cm 37.5 kg/m2 65911.7 4 g 96 % 83 /min 16 /min 127/78 mm[Hg] Lauren Vergara MA [facility] 5 11:33:17 Social History Question Answer Notes LastModified by Organizat ion Details LastModified Time Tobacco Smoking Status Former Smoker since aug 2023 Lauren Vergara MA [facility], [facility] 03/03/2025 14:04:07 Do You Have An Advance Directive? No Information not available 11/14/2018 Are You Blind Or Do You Have Difficulty Seeing? No Information not available 03/20/2022 What Is Your Level Of Caffeine Consumption? Moderate Diet Soda Information not available 11/26/2020 How Much Tobacco Do You Chew? None Information not available 02/16/2020 In The 14 Days Before Symptom Onset, Have You Had Close Contact With A Laboratory-confir med COVID-19 While That Case Was Ill? No Information not available 03/20/2022 In The 14 Days Before Symptom Onset, Have You Had Close Contact With A Person Who Is Under Investigation For COVID-19 While That Person Was Ill? No Information not available 03/20/2022 Have You Been To An Area Known To Be High Risk For COVID-19? No Information not available 03/20/2022 Are You Deaf Or Do You Have Serious Difficulty Hearing? No Information not available 03/20/2022 What Type Of Diet Are You Following? DIABETIC Information not available 11/14/2018 Which Illicit Or Recreational Drugs Have You Used? None Information not available 11/26/2020 Education 12 Information no t available 11/14/2018 Are There Any Guns Present In Your Home? No Information not available 11/14/2018 Hard Of Hearing Or Deaf In One Or Both Ears? No Information not available 11/14/2018 Legally Blind In One Or Both Eyes? No Information no t available 11/14/2018 Live Alone Or With Others? With Others Information not available 11/14/2018 Do You Have A High School Diploma Or Higher Education? Yes Information not available 03/20/2022 Do You Sometimes Have To Miss Your Medical Appointments Due To Difficult Getting Transportation? No Information not available 03/20/2022 Do You Feel Unfairly Treated Due To Things Such As Race, Age, Gender, Disability Or Some Other Reason? No Information not available 03/20/2022 Do You Feel Physically And Emotionally Safe While Living At Home? Yes Information not available 03/20/2022 Do You Feel Physically And Emotionally Safe In Your Neighborhood Or Other Public Places? Yes Information not available 03/20/2022 What Was The Date Of Your Most Recent Tobacco Screening? 06/03/2025 Information not available 06/03/2025 How Many Children Do You Have? 3 Information not available 11/14/2018 What Is Your Relationship Status? Single Information not available 03/20/2022 Do You Use Your Seat Belt Or Car Seat Routinely? Yes Information not available 03/20/2022 Are You Sexually Active? No Information not available 11/14/2018 Smoke Alarm In Home Yes Information not available 11/14/2018 Do You Have Smoke And Carbon Monoxide Detectors In Your Home? Yes Information not available 03/20/2022 At What Age Did You Start Smoking Tobacco? 25 Information not available 11/14/2018 Are You Passively Exposed To Smoke? Yes Information no t available 11/14/2018 How Much Tobacco Do You Smoke? 0.5 PPD Information not available 11/14/2018 General Stress Level Low Information not available 11/14/2018 Do You Use Sunscreen Routinely? No Information not available 03/20/2022 Has Tobacco Cessation Counseling Been Provided? Yes [email or web address] Information not available 03/14/2019 On What Date Was Tobacco Cessation Counseling Provided? 06/03/2025 Information not available 06/03/2025 How Many Years Have You Smoked Tobacco? 40 Information not available 11/14/2018 Sex: Female Functional Status Question Answer Note LastModified by Organizat ion Details LastModified Time Do you use any illicit or recreational drugs? No Information not available 03/20/2022 What is your level of alcohol consumption? None Information not available 11/14/2018 Do you or have you ever used smokeless tobacco? Never used smokeless tobacco Information not available 02/16/2020 Are you currently employed? No Information not available 11/14/2018 Are you able to care for yourself independently? Yes Information not available 11/14/2018 What is your occupation? unemployed Information not available 11/26/2020 Do you or have you ever used e-cigarettes or vape? Never used electronic cigarettes Information not available 02/16/2020 What is your exercise level? None Information not available 11/14/2018 Mental Status Question Answer Note LastModified by Organization D etails LastModified Time Do you feel stressed (tense, restless, nervous, or anxious, or unable to sleep at night)? [id number] Information not available 03/20/2022 Family History Relationship Description Onset Age of this Age Resolved Age Notes LastModified by Organization Details LastModified Time Father No current problems or disability [email or web address] Not available 11/16 10:21:39 Mother No current problems or disability [email or web address] Not available 11/16 10:21:39 Medical History Condition Response Coronary Artery Disease N Other N High Blood Pressure Y Atrial Fibrillation N Kidney or Bladder Problems N Thyroid Problems N GI Problems N Depression N COPD N Blood Clots N Skin Problems N Eating Disorder N Anemia N Heart Attack ([place]) N Anxiety Disorder N Diabetes Y Muscle, Joint, or Bone Problems N Seizures/Epilepsy N Acid Reflux (GERD) N Cancer N Stroke N Asthma N Allergies Y ADHD N Substance Abuse N High Cholesterol Y Hepatitis N Liver Disease N Schizophrenia N Headaches N Osteoporosis N Heart Failure N Gynecological History Statement/Question Response Date of Last Mammogram 11/19/2019 Menses Monthly N Date of Last Pap Smear 11/19/2019 Age at Menarche 14 Current Control Method Hysterectom y Age at First Child 21 LMP Unknown Obstetrics History GPAL:G 3 P 3 0 0 3 Type Value Multiple Births 0 Full Term 3 Induced 0 Spontaneous 0 Premature 0 Living 3 Ectopics 0 Total 3 Past Encounters Encounter ID Performer Location Encounter Start Date Encounter Closed Date Diagnosis/Indication Diagnosis SNOMED-CT Code Diagnosis ICD10 Code Diagnosis IMO Codes Diagnosis Note [id number] Malaika Mireles MD [facility] [address] [place] [address] 11/14/2018 11:07:58 11/20/2018 11:17:59 Closed fracture of left wrist [id number] S62.92XD seeing Dr. Hussein Diabetic p eripheral neuropathy 288548260 E11.40 left lateral leg, started distally and has moved proximally Screening mammography 24 978229 Z12.31 Mixed hyperlipidemia 267 542318 E78.2 used to take atorvastat in but quit on the advice of her pharmacist ; will see how the blood lipids are doing now. Urinary incontinence 165 643609 R32 Uncontroll ed type 2 diabetes mellitus 981832949 E11.65 Acute urin shashank tract infection 394153661 N39.0 Essential hypertension 90523267 I10 takes losartan and hydrochlor othiazide Standardiz ed adult depression screening tool completed [id number] 28763 Z13.89 patient does not appear to be significan tly depressed. [id number] Malaika Mireles MD [facility] [address] [place] [address] 03/14/2019 09:44:47 03/17/2019 11:07:51 Screening for malignant neoplasm of colon 619302457 Z12.11 Diabetes mellitus 358085 09 E11.69 Mixed hype rlipidemia due to type 2 diabetes mellitus 9790798850 03 E78.2 Hyperglyce haydee due to type 2 diabetes mellitus 5369921745 86677 E11.65 [id number] Malaika Mireles MD [facility] [address] [place] [address] 04/07/2019 17:04:36 04/16/2019 09:13:14 Acute bronchitis with bronchospasm 62852926 J20.9 Chicken soup, orange juice, popsicles, snow cones, slurpees, ice cream, tea with honey and lemon, hot lemonade, gatorade, and yogurt may make you feel better. [id number] Malaika Mireles MD [facility] [address] [place] [address] 07/09/2019 09:46:12 07/15/2019 08:19:59 Type 2 diabetes mellitus 51689015 E11.9 Tobacco user 769904851 Z 72.0 Standard ed adult depression screening tool completed 7642809307 50092 Z13.89 patient does not appear to be significan tly depressed. [id number] Malaika Mireles MD [facility] [address] [place] [address] 02/16/2020 10:12:52 02/17/2020 16:31:59 Essential hypertension 98432243 I10 Hyperlipidemia 96828087 E78.5 discussed low fat, low carb diet, and encouraged exercise. Diabetes mellitus 474623 09 E11.69 [id number] Malaika Mireles MD [facility] [address] [place] [address] 11/26/2020 08:40:18 12/07/2020 08:45:31 Mixed hyperlipidemia 763781547 E78.2 pharmacist told patient to stop taking the atorvastat in but I advised her to continue. Essential hypertension 36211843 I10 Patient advised to limit salt and caffeine intake to maintain good blood pressure. Type 2 belen betes mellitus 54832360 E11.9 discussed low fat, low carb diet, and encouraged exercise. Depression screening 171 060725 Z13.31 patient does not appear to be significan tly depressed. [id number] Yahir Saenz MD [facility] [address] [place] [address] 07/04/2021 10:24:00 07/08/2021 11:46:12 Essential hypertension 37153863 I10 refill Hyperlipidemia 23114209 E78.5 meds Obesity 617696565 E66.9 follow up... Type 2 belen betes mellitus 03166228 E11.37X9 [id number] Yahir Saenz MD [facility] [address] [place] [address] 11/16/2021 10:06:19 11/17/2021 07:05:34 Type 2 diabetes mellitus 42918545 E11.37X9 Gastro-eso phageal reflux disease with esophagitis 013245593 K21.00 Hyperlipidemia 65782985 E78.5 Essential hypertension 38526703 I10 Serum crea tinine above reference range 875253029 R79.89 Hypercholesterolemia 136 23055 E78.00 [id number] Yaakov dominguez MD [facility] [address] [place] [address] 03/20/2022 13:51:12 03/21/2022 10:29:27 Screening for malignant neoplasm of breast 096730164 Z12.39 due for mammo Type 2 belen betes mellitus 40753367 E11.37X9 Last A1C: 03/20/22- 7.0Fasting BG range: 120-140Cur rent Therapy: glipizide 10, metformin 1000, pioglitazo ne 45Statin: ator 20ACE/ARB: losartan 100Foot Exam: 03/20/22: normalMicr oalbumin: ordered outpatient Pneumovax 23: NEXT VISITDM eye exam: completed last year at [facility], need records Pt was counseled on low carbohydra te diet to better manage diabetes. We went discussed pt's diet at length and I made specific dietary recommenda tions. I also encouraged regular exercise of 30-60 minutes most days of the week. Pt was encouraged to get yearly diabetic eye exams as well. Tobacco de pendence syndrome 66771901 F17.200 1/2 ppdsince age 17, 25 pk yeartried patches w/o reliefwant s to quit april 07 when son moves outordered LDCT Overflow i ncontinence of urine 491314122 N39.490 10 [facility]sw[facility] with kegel exercises 1 yr ago, no reliefshe had 3 children- C sectionc/o constant urinary leaking, has to wear pads daily, stress incontinen ce with coughing, laughingdi scussed medication options- oxybuytnin 5 mg, $42 at pharmacy, called and left pt [facility] Right Achi lles tendinitis [id number] 65195 M76.61 x3 moworse with walking up stairs and when legs are elevated in reclinerha s not tried any supportive care for sxPEx- mild TTP superior aspect of R achilles tendontria l NSAIDs daily, ICE, stretching wear supportive shoes with insertsf/u in 2 wks if symptoms don't imprve Depression screening 171 066776 Z13.31 PHQ 1 [id number] Yaakov dominguez MD [facility] [address] [place] [address] 06/20/2022 15:44:01 06/21/2022 12:30:49 Type 2 diabetes mellitus 59075062 E11.37X9 06/20/22:a1c 6.8c/o episodes of low blood sugar in the morning, 60-70sstop glipizidec /w metformin and pioglitazo ne (TZD)trial ozempic for weight loss, showed pt with demo penrefused pneumonia vaccinemic roalbumin nlf/u in 3 months Last A1C: 03/20/22- 7.0Fasting BG range: 120-140Cur rent Therapy: glipizide 10, metformin 1000, pioglitazo ne 45Statin: ator 20ACE/ARB: losartan 100Foot Exam: 03/20/22: normalMicr oalbumin: ordered outpatient Pneumovax 23: NEXT VISITDM eye exam: completed last year at [facility], need records Pt was counseled on low carbohydra te diet to better manage diabetes. We went discussed pt's diet at length and I made specific dietary recommenda tions. I also encouraged regular exercise of 30-60 minutes most days of the week. Pt was encouraged to get yearly diabetic eye exams as well. Serum crea tinine above reference range 968284040 R79.89 03/2022: 1.28 Crre-check Pain in left arm 3099681 00 M79.602 L arm pain x2 monthsshvandana fell and broke her L wrist 5 yrs ago, went to PT and has had no issues sinceDenie s any trauma, injury, or falldull ache that starts in her upper arm and moves down into her handno difficulty with ROMPain does not occur everydayoc curs when she is sitting in her recliner at night, lasts up to 1 hr and then goes awaytyleno l/aleve twice a week with improvemen tconcerned that sx are cardiac relatedDen ies chest pain, SOB, slurred speech, numbness/t ingling to extremitie sPEx- nl, FROM L shoulderre assured pttrial increasing NSAIDscan refer to PT/imaging to r/o arthritisp t requesting EKGf/u with any new or worsening sx Pain of ri ght knee joint [id number] 26050 M25.561 c/o difficulty exercising to lose weight due to knee pain R>Lworse walking up and down stairs and kneelingXR bilat knees Overflow i ncontinence of urine 148465839 N39.490 06/20/22:no improvemen t with oxybutynin 03/2022:11 yrswent to [facility] with kegel exercises 1 yr ago, no reliefshe had 3 children- C sectionc/o constant urinary leaking, has to wear pads daily, stress incontinen ce with coughing, laughingdi scussed medication options- oxybuytnin 5 mg, $42 at pharmacy, called [facility] Depression screening 171 090381 Z13.31 PHQ 2 [id number] Yaakov dominguez MD [facility] [address] [place] [address] 08/18/2022 13:49:21 08/21/2022 13:19:20 Pain in left arm 471130233 M79.602 08/18/22: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[employer], 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 06/20/22:L arm pain x2 monthsshe fell and broke her L wrist 5 yrs ago, went to PT and has had no issues sinceDenie s any trauma, injury, or falldull ache that starts in her upper arm and moves down into her handno difficulty with ROMPain does not occur everydayoc curs when she is sitting in her recliner at night, lasts up to 1 hr and then goes awaytyleno l/aleve twice a week with improvemen tconcerned that sx are cardiac relatedDen ies chest pain, SOB, slurred speech, numbness/t ingling to extremitie sPEx- nl, FROM L shoulderre assured pttrial increasing NSAIDscan refer to PT/imaging to r/o arthritisp t requesting EKGf/u with any new or worsening sx Type 2 belen betes mellitus 55868676 E11.37X9 08/18/22:lo st 8 lbs since last visitfasti ng BS 120-183pos t prandial BS 129-197con cerned about BS higher with stopping glipizide (causing hypoglycem ia)increas e metformin from 1000 to 2000increa se ozempic from 0.25 to 0.5, pt reports unable to eat full meals to due medication refused flu shot and high dose pneumonia vaccinef/u in 6 wks for a1c 06/20/22:a1c 6.8c/o episodes of low blood sugar in the morning, 60-70sstop glipizidec /w metformin and pioglitazo ne (TZD)trial ozempic for weight loss, showed pt with demo penrefused pneumonia vaccinemic roalbumin nlf/u in 3 months Last A1C: 03/20/22- 7.0Fasting BG range: 120-140Cur rent Therapy: glipizide 10, metformin 1000, pioglitazo ne 45Statin: ator 20ACE/ARB: losartan 100Foot Exam: 03/20/22: normalMicr oalbumin: ordered outpatient Pneumovax 23: NEXT VISITDM eye exam: completed last year at [facility], need records Pt was counseled on low carbohydra te diet to better manage diabetes. We went discussed pt's diet at length and I made specific dietary recommenda tions. I also encouraged regular exercise of 30-60 minutes most days of the week. Pt was encouraged to get yearly diabetic eye exams as well. Serum crea tinine above reference range 662227915 R79.89 06/20/22: Cr 1.271 has appt with [facility] Nephrology 03/2022: 1.28 Crre-check Tobacco de pendence syndrome 10696651 F17.200 08/18/22:do es not want to quit at [facility] in order for insurance to cover LDCT, the pt has to have a 30 pack year smoke history to be covered 06/20/22:1/2 ppdsince age 17, 25 pk yeartried patches w/o reliefwant s to quit april 07 when son moves out Essential hypertension 58343479 I10 BP today 130/60BP at home 130s/70sc/ w HCTZ 25, losartan 832 [id number] Yaakov dominguez MD [facility] [address] [place] [address] 09/25/2022 10:52:26 09/26/2022 12:17:02 Type 2 diabetes mellitus 09667143 E11.37X9 09/25/22:a1 c today pending Last A1C: 6.8Fasting BG range: 134-156Pos t prandial: 145-172Cur rent Therapy: metformin 1999, pioglitazo ne 45, ozempic 0.5Statin: ator 20ACE/ARB: losartan 100Foot Exam: completed 03/2022 nlMicroalb umin: 03/21/22 nlPneumova x 23: refusedDM eye exam: completed last year at [facility], need records issues with obtaining ozempic due to [place] short[place] 8lbs since last visitSwitc h to Victoza 1.2 mg daily, can increase to 1.8 mg after 1 moBlood draw for A1c 08/18/22:lo st 8 lbs since last visitfasti ng BS 120-183pos t prandial BS 129-197con cerned about BS higher with stopping glipizide (causing hypoglycem ia)increas e metformin from 1000 to 2000increa se ozempic from 0.25 to 0.5, pt reports unable to eat full meals to due medication refused flu shot and high dose pneumonia vaccinef/u in 6 wks for a1c 06/20/22:a1c 6.8c/o episodes of low blood sugar in the morning, 60-70sstop glipizidec /w metformin and pioglitazo ne (TZD)trial ozempic for weight loss, showed pt with demo penrefused pneumonia vaccinemic roalbumin nlf/u in 3 months Last A1C: 03/20/22- 7.0Fasting BG range: 120-140Cur rent Therapy: glipizide 10, metformin 1000, pioglitazo ne 45Statin: ator 20ACE/ARB: losartan 100Foot Exam: 03/20/22: normalMicr oalbumin: ordered outpatient Pneumovax 23: NEXT VISITDM eye exam: completed last year at [facility], need records Pt was counseled on low carbohydra te diet to better manage diabetes. We went discussed pt's diet at length and I made specific dietary recommenda tions. I also encouraged regular exercise of 30-60 minutes most days of the week. Pt was encouraged to get yearly diabetic eye exams as well. Serum crea tinine above reference range 324394377 R79.89 09/25/2022: Could not make it to [facility] kidney specialist appointmen t due to insurance transporta tion issuesalso mentioned it may not be covered because out of statere-se nd referral to [facility] 06/20/22: Cr 1. has appt with [facility] Nephrology 03/2022: 1.28 Crre-check Screening for malignant neoplasm of colon 646256158 Z12.11 completed 2018, due for repeat 2028record s in chart Essential hypertension 80823687 I10 09/25/2022: BP today 140/86, 150/72took BP meds this morningSta francois she has not been recording BP at homeAdvise d to check BP at home this afternoon, call with BP resultsgoa l <130/80 08/18/2022 P today 130/60BP at home 130s/70sc/ w HCTZ 25, losartan 022 [id number] Yaakov dominguez MD [facility] [address] [facility] [place] [address] 01/23/2023 10:40:52 01/23/2023 11:19:38 Type 2 diabetes mellitus 72526928 E11.37X9 01/23/23:a1c today 6.3last a1c 7.2fasting 110slost 18 lbsstop pioglitazo ne 45c/w victoza 1.2 mg and metformin 2000f/u in 3 mo for lab work, foot exam, microalbum in 09/25/22:a1 c today pending Last A1C: 6.8Fasting BG range: 134-156Pos t prandial: 145-172Cur rent Therapy: metformin 2000, pioglitazo ne 45, ozempic 0.5Statin: ator 20ACE/ARB: losartan 100Foot Exam: completed 03/2022 nlMicroalb umin: 03/21/22 nlPneumova x 23: refusedDM eye exam: completed last year at [facility], need records issues with obtaining ozempic due to nation wide shortagelo st 8lbs since last visitSwitc h to Victoza 1.2 mg daily, can increase to 1.8 mg after 1 moBlood draw for A1c 08/18/22:lo st 8 lbs since last visitfasti ng BS 120-183pos t prandial BS 129-197con cerned about BS higher with stopping glipizide (causing hypoglycem ia)increas e metformin from 1000 to 2000increa se ozempic from 0.25 to 0.5, pt reports unable to eat full meals to due medication refused flu shot and high dose pneumonia vaccinef/u in 6 wks for a1c 06/20/22:a1c 6.8c/o episodes of low blood sugar in the morning, 60-70sstop glipizidec /w metformin and pioglitazo ne (TZD)trial ozempic for weight loss, showed pt with demo penrefused pneumonia vaccinemic roalbumin nlf/u in 3 months Last A1C: 03/20/22- 7.0Fasting BG range: 120-140Cur rent Therapy: glipizide 10, metformin 1000, pioglitazo ne 45Statin: ator 20ACE/ARB: losartan 100Foot Exam: 03/20/22: normalMicr oalbumin: ordered outpatient Pneumovax 23: NEXT VISITDM eye exam: completed last year at [facility], need records Pt was counseled on low carbohydra te diet to better manage diabetes. We went discussed pt's diet at length and I made specific dietary recommenda tions. I also encouraged regular exercise of 30-60 minutes most days of the week. Pt was encouraged to get yearly diabetic eye exams as well. Essential hypertension 63768140 I10 01/23/23:BP 134/80c/w meds 09/25/2022: BP today 140/86, 150/72took BP meds this morningSta francois she has not been recording BP at homeAdvise d to check BP at home this afternoon, call with BP resultsgoa l <130/80 08/18/2022 P today 130/60BP at home 130s/70sc/ w HCTZ 25, losartan 100 Serum crea tinine above reference range 660999169 R79.89 01/23/23:saw kidney specialist on 01/09/23fol low up testing in 3 mo 09/25/2022: Could not make it to [facility] kidney specialist appointmen t due to insurance transporta tion issuesalso mentioned it may not be covered because out of statere-se nd referral to [facility] 06/20/22: Cr 1.271 has appt with [facility] Nephrology 03/2022: 1.28 Crre-check Morbid obesity 675427455 E66.01 lost 18 lbs in 5 monthsdisc ussed increasing exercise and healthier food options, high protein, low fat diet Serous otitis media 8032 7007 H65.02 PEx- L EAC erythemato us, L TM bulging and immobiletr ial steroid ear drops Dry skin 17741308 L85.3 bilateral hips, back, scalpminim al excoriatio ns noted to above L hiptrial eucerin or aquaphor twice a day Pain of le ft hip joint [id number] 19299 M25.552 x2 dayssharp pain in AMrelief with tylenolmos t likely arthritis or muscle strainrec' d pt take tylenol before bedf/u in 2 wks if symptoms do not improve Depression screening 171 824101 Z13.31 PHQ 3 [id number] Yaakov dominguez MD [facility] [address] [facility] [place] [address] 04/27/2023 10:45:08 04/27/2023 11:32:06 Type 2 diabetes mellitus 29135095 E11.37X9 04/27/23:a1c today 6.3last a1c 6.3increas e victoza to 1.8 mgdecrease metformin to 1000DF exam normalrout ine blood work and microalbum inf/u in 3 months 01/23/23:a1c today 6.3last a1c 7.2fasting 110slost 18 lbsstop pioglitazo ne 45c/w victoza 1.2 mg and metformin 2000f/u in 3 mo for lab work, foot exam, microalbum in 09/25/22:a1 c today pending Last A1C: 6.8Fasting BG range: 134-156Pos t prandial: 145-172Cur rent Therapy: metformin 2000, pioglitazo ne 45, ozempic 0.5Statin: ator 20ACE/ARB: losartan 100Foot Exam: completed 03/2022 nlMicroalb umin: 03/21/22 nlPneumova x 23: refusedDM eye exam: completed last year at [facility], need records issues with obtaining ozempic due to [place] wide shortagelo st 8lbs since last visitSwitc h to Victoza 1.2 mg daily, can increase to 1.8 mg after 1 moBlood draw for A1c 08/18/22:lo st 8 lbs since last visitfasti ng BS 120-183pos t prandial BS 129-197con cerned about BS higher with stopping glipizide (causing hypoglycem ia)increas e metformin from 1000 to 2000increa se ozempic from 0.25 to 0.5, pt reports unable to eat full meals to due medication refused flu shot and high dose pneumonia vaccinef/u in 6 wks for a1c 06/20/22:a1c 6.8c/o episodes of low blood sugar in the morning, 60-70sstop glipizidec /w metformin and pioglitazo ne (TZD)trial ozempic for weight loss, showed pt with demo penrefused pneumonia vaccinemic roalbumin nlf/u in 3 months Last A1C: 03/20/22- 7.0Fasting BG range: 120-140Cur rent Therapy: glipizide 10, metformin 1000, pioglitazo ne 45Statin: ator 20ACE/ARB: losartan 100Foot Exam: 03/20/22: normalMicr oalbumin: ordered outpatient Pneumovax 23: NEXT VISITDM eye exam: completed last year at [facility], need records Pt was counseled on low carbohydra te diet to better manage diabetes. We went discussed pt's diet at length and I made specific dietary recommenda tions. I also encouraged regular exercise of 30-60 minutes most days of the week. Pt was encouraged to get yearly diabetic eye exams as well. Chronic ki dney disease stage 3A 226071368 N18.31 04/27/23:saw nephro 03/29/23: Renal function is stable and workup indicates this is likely due to longstandi ng h/o HTN and DM. We discuss the benefits of farxiga and starting at 10 mg daily. I have recommende d she start for renal benefit and she would like to speak with PCP prior to initiating and has an upcoming appt. will continue to monitor patient on every 4 month basis with repeat labsrec'd farxiga, $500, too expensive and pt declinesha s f/u in 07/202308/18/22:804/09: Cr 1.27, eGFR 475/02/07: Cr 1.28 eGFR 46microalb umin nlrefer to nephro Smoker 37540403 F17.200 1/2 ppdworking out cutting back Chronic se los otitis media of left ear 356788785 H65.22 trial antihistam ine Screening for malignant neoplasm of breast 764762448 Z12.39 due for mammo Depression screening 171 374181 Z13.31 PHQ 0 [id number] CHAITANYA MCELROY [facility] [address] [place] [address] 08/17/2023 10:46:27 08/21/2023 09:14:53 Type 2 diabetes mellitus 66491324 E11.37X9 08/17/23:a1 c today 6.6last a1c 6.3microal bumin normalDM eye exam 07/04/23: normal, results in chartnephr ology wants SGLT-2- will reach out them about invokana since farxiga and jardiance are not coveredSpo ke with Marta Monae NP nephrology - rec'd trial 100 mg invokana, [facility] prevnar 20f/u in 3 mo 04/27/23:a1c today 6.3last a1c 6.3increas e victoza to 1.8 mgdecrease metformin to 1000DF exam normalrout ine blood work and microalbum inf/u in 3 months 01/23/23:a1c today 6.3last a1c 7.2fasting 110slost 18 lbsstop pioglitazo ne 45c/w victoza 1.2 mg and metformin 2000f/u in 3 mo for lab work, foot exam, microalbum in 09/25/22:a1 c today pending Last A1C: 6.8Fasting BG range: 134-156Pos t prandial: 145-172Cur rent Therapy: metformin 2000, pioglitazo ne 45, ozempic 0.5Statin: ator 20ACE/ARB: losartan 100Foot Exam: completed 03/2022 nlMicroalb umin: 03/21/22 nlPneumova x 23: refusedDM eye exam: completed last year at [facility], need records issues with obtaining ozempic due to nation wide shortagelo st 8lbs since last visitSwitc h to Victoza 1.2 mg daily, can increase to 1.8 mg after 1 moBlood draw for A1c 08/18/22:lo st 8 lbs since last visitfasti ng BS 120-183pos t prandial BS 129-197con cerned about BS higher with stopping glipizide (causing hypoglycem ia)increas e metformin from 1000 to 2000increa se ozempic from 0.25 to 0.5, pt reports unable to eat full meals to due medication refused flu shot and high dose pneumonia vaccinef/u in 6 wks for a1c 06/20/22:a1c 6.8c/o episodes of low blood sugar in the morning, 60-70sstop glipizidec /w metformin and pioglitazo ne (TZD)trial ozempic for weight loss, showed pt with demo penrefused pneumonia vaccinemic roalbumin nlf/u in 3 months Last A1C: 03/20/22- 7.0Fasting BG range: 120-140Cur rent Therapy: glipizide 10, metformin 1000, pioglitazo ne 45Statin: ator 20ACE/ARB: losartan 100Foot Exam: 03/20/22: normalMicr oalbumin: ordered outpatient Pneumovax 23: NEXT VISITDM eye exam: completed last year at [facility], need records Pt was counseled on low carbohydra te diet to better manage diabetes. We went discussed pt's diet at length and I made specific dietary recommenda tions. I also encouraged regular exercise of 30-60 minutes most days of the week. Pt was encouraged to get yearly diabetic eye exams as well. Chronic ki dney disease stage 3A 321505471 N18.31 08/17/23:sa w nephro 07/26/23:Re nal function is stable. Goals of treatment include tight control of BP and blood sugar, avoid NSAIDS, and maintain hydration. I discussed with her the use of an SGLT2 and will send farxiga to the pharmacy. If she starts farxiga will obtain a BMP in 6-8 weeks. F/u in 4 mo with repeat labs.will trial invokana 04/27/23:saw nephro 03/29/23: Renal function is stable and workup indicates this is likely due to longstandi ng h/o HTN and DM. We discuss the benefits of farxiga and starting at 10 mg daily. I have recommende d she start for renal benefit and she would like to speak with PCP prior to initiating and has an upcoming appt. will continue to monitor patient on every 4 month basis with repeat labsrec'd farxiga, $500, too expensive and pt declinesha s f/u in 07/202308/18/22:06/23/22: Cr 1.27, eGFR /02/07: Cr 1.28 eGFR 46microalb umin nlrefer to nephro Smoker 95474665 F17.200 5-6 cigs/days lowing downdoesn 't want to try patches Depression screening 171 007839 Z13.31 PHQ 0 Screening for osteoporosis 014761027 Z13.820 will discuss at f/u visit [id number] Yaakov dominguez MD [facility] [address] [place] [address] 11/06/2023 13:49:45 11/07/2023 12:28:42 Type 2 diabetes mellitus 38053160 E11.37X9 11/06/23:a 1c today 6.1last a1c 6.6urinati ng 4x/night with gladys hagen'd to stop fluids at 7 PMf/u in 3 mo for a1c 08/17/23:a1 c today 6.6last a1c 6.3microal bumin normalDM eye exam 07/04/23: normal, results in chartnephr ology wants SGLT-2- will reach out them about invokana since farxiga and jardiance are not coveredSpo ke with Marta Monae NP nephrology - rec'd trial 100 mg invokana, will send to discount pharmacyre fused prevnar 20f/u in 3 mo 04/27/23:a1c today 6.3last a1c 6.3increas e victoza to 1.8 mgdecrease metformin to 1000DF exam normalrout ine blood work and microalbum inf/u in 3 months 01/23/23:a1c today 6.3last a1c 7.2fasting 110slost 18 lbsstop pioglitazo ne 45c/w victoza 1.2 mg and metformin 2000f/u in 3 mo for lab work, foot exam, microalbum in 09/25/22:a1 c today pending Last A1C: 6.8Fasting BG range: 134-156Pos t prandial: 145-172Cur rent Therapy: metformin 2000, pioglitazo ne 45, ozempic 0.5Statin: ator 20ACE/ARB: losartan 100Foot Exam: completed 03/2022 nlMicroalb umin: 03/21/22 nlPneumova x 23: refusedDM eye exam: completed last year at [facility], need records issues with obtaining ozempic due to [place] wide shortagelo st 8lbs since last visitSwitc h to Victoza 1.2 mg daily, can increase to 1.8 mg after 1 moBlood draw for A1c 08/18/22:lo st 8 lbs since last visitfasti ng BS 120-183pos t prandial BS 129-197con cerned about BS higher with stopping glipizide (causing hypoglycem ia)increas e metformin from 1000 to 2000increa se ozempic from 0.25 to 0.5, pt reports unable to eat full meals to due medication refused flu shot and high dose pneumonia vaccinef/u in 6 wks for a1c 06/20/22:a1c 6.8c/o episodes of low blood sugar in the morning, 60-70sstop glipizidec /w metformin and pioglitazo ne (TZD)trial ozempic for weight loss, showed pt with demo penrefused pneumonia vaccinemic roalbumin nlf/u in 3 months Last A1C: 03/20/22- 7.0Fasting BG range: 120-140Cur rent Therapy: glipizide 10, metformin 1000, pioglitazo ne 45Statin: ator 20ACE/ARB: losartan 100Foot Exam: 03/20/22: normalMicr oalbumin: ordered outpatient Pneumovax 23: NEXT VISITDM eye exam: completed last year at [facility], need records Pt was counseled on low carbohydra te diet to better manage diabetes. We went discussed pt's diet at length and I made specific dietary recommenda tions. I also encouraged regular exercise of 30-60 minutes most days of the week. Pt was encouraged to get yearly diabetic eye exams as well. Screening for osteoporosis [id number] Z13.820 wants to wait until she switches insurance January 2024 Tobacco de pendence in remission [id number] F17.201 quit smoking 08/27/23 [id number] Yaakov dominguez MD [facility] [address] [place] [address] 01/23/2024 09:52:08 01/23/2024 10:23:13 Type 2 diabetes mellitus [id number] E11.37X9 01/23/24: a1c today 6.2last a1c 6.1med refillsdue for yearly labs and microalbum in 04/202411/06/23:a 1c today 6.1last a1c 6.6urinati ng 4x/night with invokanare c'd to stop fluids at 7 PMf/u in 3 mo for a1c 08/17/23:a1 c today 6.6last a1c 6.3microal bumin normalDM eye exam 07/04/23: normal, results in chartnephr ology wants SGLT-2- will reach out them about invokana since farxiga and jardiance are not coveredSpo ke with Marta Monae NP nephrology - rec'd trial 100 mg invokana, will send to discount pharmacyre fused prevnar 20f/u in 3 mo 04/27/23:a1c today 6.3last a1c 6.3increas e victoza to 1.8 mgdecrease metformin to 1000DF exam normalrout ine blood work and microalbum inf/u in 3 months 01/23/23:a1c today 6.3last a1c 7.2fasting 110slost 18 lbsstop pioglitazo ne 45c/w victoza 1.2 mg and metformin 2000f/u in 3 mo for lab work, foot exam, microalbum in 09/25/22:a1 c today pending Last A1C: 6.8Fasting BG range: 134-156Pos t prandial: 145-172Cur rent Therapy: metformin 2000, pioglitazo ne 45, ozempic 0.5Statin: ator 20ACE/ARB: losartan 100Foot Exam: completed 03/2022 nlMicroalb umin: 03/21/22 nlPneumova x 23: refusedDM eye exam: completed last year at [facility], need records issues with obtaining ozempic due to nation wide shortagelo st 8lbs since last visitSwitc h to Victoza 1.2 mg daily, can increase to 1.8 mg after 1 moBlood draw for A1c 08/18/22:lo st 8 lbs since last visitfasti ng BS 120-183pos t prandial BS 129-197con cerned about BS higher with stopping glipizide (causing hypoglycem ia)increas e metformin from 1000 to 2000increa se ozempic from 0.25 to 0.5, pt reports unable to eat full meals to due medication refused flu shot and high dose pneumonia vaccinef/u in 6 wks for a1c 06/20/22:a1c 6.8c/o episodes of low blood sugar in the morning, 60-70sstop glipizidec /w metformin and pioglitazo ne (TZD)trial ozempic for weight loss, showed pt with demo penrefused pneumonia vaccinemic roalbumin nlf/u in 3 months Last A1C: 03/20/22- 7.0Fasting BG range: 120-140Cur rent Therapy: glipizide 10, metformin 1000, pioglitazo ne 45Statin: ator 20ACE/ARB: losartan 100Foot Exam: 03/20/22: normalMicr oalbumin: ordered outpatient Pneumovax 23: NEXT VISITDM eye exam: completed last year at [facility], need records Pt was counseled on low carbohydra te diet to better manage diabetes. We went discussed pt's diet at length and I made specific dietary recommenda tions. I also encouraged regular exercise of 30-60 minutes most days of the week. Pt was encouraged to get yearly diabetic eye exams as well. Chronic ki dney disease stage 3B [id number] N18.32 consult note 12/21/23:Sta ge 3b chronic kidney diseaseRen al function is noted to be with mild decline. Her creatinine range over the last year has been 1.56-1.81 mg/dL. We discussed goals of treatment and POC going forward. I encouraged her to maintain good hydration, tight control of BP and blood sugar, and to minimize use of NSAIDS as able.At this time will see her back in 4 months with repeat labs. 08/17/23: w nephro 07/26/23:Re nal function is stable. Goals of treatment include tight control of BP and blood sugar, avoid NSAIDS, and maintain hydration. I discussed with her the use of an SGLT2 and will send farxiga to the pharmacy. If she starts farxiga will obtain a BMP in 6-8 weeks. F/u in 4 mo with repeat labs.will trial invokana 04/27/23:saw nephro 03/29/23: Renal function is stable and workup indicates this is likely due to longstandi ng h/o HTN and DM. We discuss the benefits of farxiga and starting at 10 mg daily. I have recommende d she start for renal benefit and she would like to speak with PCP prior to initiating and has an upcoming appt. will continue to monitor patient on every 4 month basis with repeat labsrec'd farxiga, $500, too expensive and pt declinesha s f/u in 07/202308/18/22:06/23/22: Cr 1.27, eGFR 475/02/07: Cr 1.28 eGFR 46microalb umin nlrefer to nephro Depression screening 171 392379 Z13.31 PHQ 13attribut es to family stressdeni es SI/HIdecli nuha medication or counseling at this time Essential hypertension [id number] I10 01/23/24: BP 116/70c/w losartan 100 and HCTZ 25 01/23/23:BP 134/80c/w meds 09/25/2022: BP today 140/86, 150/72took BP meds this morningSta francois she has not been recording BP at homeAdvise d to check BP at home this afternoon, call with BP resultsgoa l <130/80 08/18/2022 P today 130/60BP at home 130s/70sc/ w HCTZ 25, losartan 802 [id number] Yaakov dominguez MD [facility] [address] [place] [address] 04/30/2024 09:49:15 04/30/2024 10:40:22 Type 2 diabetes mellitus without complication [id number] E11.9 04/30/24: a1c today 5.9last a1c 6.2a1c done by Medicare provider at home on 04/02/24 was 5.3%c/w metformin 1000, invokana 100, victoza 1.8 mgmicroalb umin pendingDF exam nlpt [facility] 02/08/24: pharmacy out of victoza for the next monthshe has 9 vials of her sister's victoza unopened, advised pt risk of taking medication not prescribed to her and ADR, less concerned about ADR due to pt taking victoza 1.8 mg daily since t aware of risks and states that she will take her sister's victoza for the next month until juli has in stock 01/23/24: a1c today 6.2last a1c 6.1med refillsdue for yearly labs and microalbum in 04/202411/06/23:a 1c today 6.1last a1c 6.6urinati ng 4x/night with invokanare c'd to stop fluids at 7 PMf/u in 3 mo for a1c 08/17/23:a1 c today 6.6last a1c 6.3microal bumin normalDM eye exam 07/04/23: normal, results in chartnephr ology wants SGLT-2- will reach out them about invokana since farxiga and jardiance are not coveredSpo ke with Marta Monae NP nephrology - rec'd trial 100 mg invokana, will send to discount pharmacyre fused prevnar 20f/u in 3 mo Postmenopausal state [phone] [id number] Z78.0 due for DEXA Obesity 788599709 E66.8 BMI 37.6discus sed increasing exercise and healthier food options, high protein, low fat diet Long-term drug therapy 541157555 Z79.899 routine labs Nicotine d ependence in remission 144520754 F17.201 1/2 ppd x40 yrsquit 08/2023ord ered LDCT scan Osteoarthr itis of knee 601106958 M17.9 diagnosed R knee 2c/o sharp/achi ng pain, worse at night when sitting in recliner or in bedtakes aleve PRN, no relief with tylenoltri ed steroid injections in the past w/o relieforde red XR R knee Depression screening 171 083220 Z13.31 04/30/24: PHQ 0 01/23/24:PHQ 13attribut es to family stressdeni es SI/HIdecli nuha medication or counseling at this time [id number] Remington Dowd MD [facility] [address] [place] [address] 07/31/2024 12:08:25 07/31/2024 12:50:19 Type 2 diabetes mellitus without complication 077198727 E11.9 07/31/24: a1c today 6.2last a1c 5.9microal bumin 34switched to trulicity 05/2024neph lizogy sent jardiance 05/2024, taking old invokana for 90 days then will go back on jardiancef /u in 3 mo 04/30/24: a1c today 5.9last a1c 6.2a1c done by Medicare provider at home on 04/02/24 was 5.3%c/w metformin 1000, invokana 100, victoza 1.8 mgmicroalb umin pendingDF exam nlpt [facility] for a1c 02/08/24: pharmacy out of victoza for the next monthshe has 9 vials of her sister's victoza unopened, advised pt risk of taking medication not prescribed to her and ADR, less concerned about ADR due to pt taking victoza 1.8 mg daily since t aware of risks and states that she will take her sister's victoza for the next month until juli has in stock 01/23/24: a1c today 6.2last a1c 6.1med refillsdue for yearly labs and microalbum in 04/202411/06/23:a 1c today 6.1last a1c 6.6urinati ng 4x/night with invokanare c'd to stop fluids at 7 PMf/u in 3 mo for a1c 08/17/23:a1 c today 6.6last a1c 6.3microal bumin normalDM eye exam 07/04/23: normal, results in chartnephr ology wants SGLT-2- will reach out them about invokana since farxiga and jardiance are not coveredSpo ke with Marta Monae NP nephrology - rec'd trial 100 mg invokana, will send to discount pharmacyre fused prevnar 20f/u in 3 mo Nicotine d ependence in remission [id number] F17.201 05/27/24- LDCT scan- negative, repeat in 12 months, prominent hypodense adrenal glands 1/2 ppd x40 yrsquit 08/2023ord ered LDCT scan Obesity 579410216 E66.8 BMI 37.5discus sed increasing exercise and healthier food options, high protein, low fat diet Depression screening 171 012051 Z13.31 07/31/24: PHQ 0 04/30/24: PHQ 0 01/23/24:PHQ 13attribut es to family stressdeni es SI/HIdecli nuha medication or counseling at this time Adrenal hyperplasia 4199 76550 E27.8 found incidental ly on LDCTrefer to endocrine Osteopenia 144174925 M85 .80 06/17/24 found on DEXA [id number] Remington Dowd MD [facility] [address] [place] [address] 03/03/2025 13:55:18 03/03/2025 14:33:28 Type 2 diabetes mellitus without complication 780463073 E11.9 03/03/25: a1c 6.2, last a1c 6.2only on metformin for the past 6 wksf/u in 3 mo, due to DF exam next visit 07/31/24: a1c today 6.2last a1c 5.9microal bumin 34switched to [facility] 05/2024neph lizogedgar sent jardiance 05/2024, taking old invokana for 90 days then will go back on jardiancef /u in 3 mo 04/30/24: a1c today 5.9last a1c 6.2a1c done by Medicare provider at home on 04/02/24 was 5.3%c/w metformin 1000, invokana 100, victoza 1.8 mgmicroalb umin pendingDF exam nlpt [facility]c 02/08/24: pharmacy out of victoza for the next monthshe has 9 vials of her sister's victoza unopened, advised pt risk of taking medication not prescribed to her and ADR, less concerned about ADR due to pt taking victoza 1.8 mg daily since 3pt aware of risks and states that she will take her sister's victoza for the next month until juli has in stock 01/23/24: a1c today 6.2last a1c 6.1med refillsdue for yearly labs and microalbum in 04/202411/06/23:a 1c today 6.1last a1c 6.6urinati ng 4x/night with invokanare c'd to stop fluids at 7 PMf/u in 3 mo for a1c 08/17/23:a1 c today 6.6last a1c 6.3microal bumin normalDM eye exam 07/04/23: normal, results in chartnephr ology wants SGLT-2- will reach out them about invokana since farxiga and jardiance are not coveredSpo ke with Marta Monae NP nephrology - rec'd trial 100 mg invokana, [facility] fused prevnar 20f/u in 3 mo Adrenal hyperplasia 4199 18113 E27.8 found incidental ly on LDCThas endocrine appt tomorrow Nicotine d ependence in remission 747727677 F17.201 03/03/25: due 05/202505/27/24- LDCT scan- negative, repeat in 12 months, prominent hypodense adrenal glands 1/2 ppd x40 yrsquit 08/2023ord ered LDCT scan Depression screening 171 261339 Z13.31 03/03/25: PHQ 2 07/31/24: PHQ 0 04/30/24: PHQ 0 01/23/24:PHQ 13attribut es to family stressdeni es SI/HIdecli nuha medication or counseling at this time Essential hypertension 63489718 I10 03/03/25: BP 145/85advi sed to check BP at home, goal BP <120/70, f/u with BP log in 1 wk 01/23/24: BP 116/70c/w losartan 100 and HCTZ 25 01/23/23:BP 134/80c/w meds 09/25/2022: BP today 140/86, 150/72took BP meds this morningSta francois she has not been recording BP at homeAdvise d to check BP at home this afternoon, call with BP resultsgoa l <130/80 08/18/2022 P today 130/60BP at home 130s/70sc/ w HCTZ 25, losartan 100 Pain of ri ght knee joint [id number] 03456 M25.561 taking aleve before bed, worse at night, walking up and down stairs, and kneelingde clines interventi ons at this time Obesity 629825915 E66.9 [id number] Remington Dowd MD [facility] [address] [facility] [address] 06/03/2025 11:46:51 06/03/2025 12:58:47 Type 2 diabetes mellitus without complication 262122476 E11.9 06/03/25: a1c from 04/30/25 is 6.5, last a1c 6.2%sugar level this morning was 160 and has been running higher for the last 2 weeks, no change in diettypica lly <130only on metformin 2000mg dailyDF exam normalseei ng kidney specialist in august, d/c jardiance and trulicity due to costf/u in 2 months 03/03/25: a1c 6.2, last a1c 6.2only on metformin for the past 6 wksf/u in 3 mo, due to DF exam next visit 07/31/24: a1c today 6.2last a1c 5.9microal bumin 34switched to trulicity 05/2024neph gio sent jardiance 05/2024, taking old invokana for 90 days then will go back on jardiancef /u in 3 mo 04/30/24: a1c today 5.9last a1c 6.2a1c done by Medicare provider at home on 04/02/24 was 5.3%c/w metformin 1000, invokana 100, victoza 1.8 mgmicroalb umin pendingDF exam nlpt [facility] for a1c 02/08/24: pharmacy out of victoza for the next monthshe has 9 vials of her sister's victoza unopened, advised pt risk of taking medication not prescribed to her and ADR, less concerned about ADR due to pt taking victoza 1.8 mg daily since 3pt aware of risks and states that she will take her sister's victoza for the next month until juli has in stock 01/23/24: a1c today 6.2last a1c 6.1med refillsdue for yearly labs and microalbum in 04/2024 12/19/23:a 1c today 6.1last a1c 6.6urinati ng 4x/night with invokanare c'd to stop fluids at 7 PMf/u in 3 mo for a1c 08/17/23:a1 c today 6.6last a1c 6.3microal bumin normalDM eye exam 07/04/23: normal, results in chartnephr ology wants SGLT-2- will reach out them about invokana since farxiga and jardiance are not coveredSpo ke with Marta Monae NP nephrology - rec'd trial 100 mg invokana, [facility] 20f/u in 3 mo Adrenal hyperplasia 4199 41126 E27.8 06/02/25: f/u in one week for lab results, following with Dr. So martinez appt was 6 mos ago 12/2024:fou nd incidental ly on LDCThas endocrine appt tomorrow Essential hypertension 57170584 I10 06/02/25: BP 158/79, 149/82Took meds this morning, no RIOJAS, SOB, palpitatio ns or service desk analyst/w losartan 100 and HCTZ 25start on amlodipine 5mg, check BP at home with kept log, f/u with BP log in 1 week (even via pt portal) 03/03/25: BP 145/85advi sed to check BP at home, goal BP <120/70, f/u with BP log in 1 wk 01/23/24: BP 116/70c/w losartan 100 and HCTZ 25 01/23/23:BP 134/80c/w meds 09/25/2022: BP today 140/86, 150/72took BP meds this morningSta francois she has not been recording BP at homeAdvise d to check BP at home this afternoon, call with BP resultsgoa l <130/80 08/18/2022 P today 130/60BP at home 130s/70sc/ w HCTZ 25, losartan 100 Nicotine d ependence in remission 277482145 F17.201 06/02/25: declines repeating LDCT scan at this time, would like to hold off and consider at next visit 03/03/25: due 05/202505/27/24- LDCT scan- negative, repeat in 12 months, prominent hypodense adrenal glands 1/2 ppd x40 yrsquit 08/2023ord ered LDCT scan Depression screening 171 965330 Z13.31 06/02/25: PHQ2 = 0 03/03/25: PHQ 2 07/31/24: PHQ 0 04/30/24: PHQ 0 01/23/24:PHQ 13attribut es to family stressdeni es SI/HIdecli nuha medication or counseling at this time Chronic ki dney disease stage 3B 227765007 N18.32 06/02/25: f/u appointmen t in August consult note 12/21/23:Sta ge 3b chronic kidney diseaseRen al function is noted to be with mild decline. Her creatinine range over the last year has been 1.56-1.81 mg/dL. We discussed goals of treatment and POC going forward. I encouraged her to maintain good hydration, tight control of BP and blood sugar, and to minimize use of NSAIDS as able.At this time will see her back in 4 months with repeat labs. 08/17/23:sa yoo nephro 07/26/23:Re nal function is stable. Goals of treatment include tight control of BP and blood sugar, avoid NSAIDS, and maintain hydration. I discussed with her the use of an SGLT2 and will send farxiga to the pharmacy. If she starts farxiga will obtain a BMP in 6-8 weeks. F/u in 4 mo with repeat labs.will trial invokana 04/27/23:saw nephro 03/29/23: Renal function is stable and workup indicates this is likely due to longstandi ng h/o HTN and DM. We discuss the benefits of farxiga and starting at 10 mg daily. I have recommende d she start for renal benefit and she would like to speak with PCP prior to initiating and has an upcoming appt. will continue to monitor patient on every 4 month basis with repeat labsrec'd farxiga, $500, too expensive and pt declinesha s f/u in 07/202308/18/22:06/23/22: Cr 1.27, eGFR : Cr 1.28 eGFR 46microalb umin nlrefer to nephro Obese class II [id number] 1 74884 E66.812 [id number] routine labs Screening mammography 24 326223 Z12.31 [id number] has appt in August [id number] Remington Dowd MD [facility] [address] [place] [address] 09/03/2025 11:28:39 09/03/2025 12:11:13 Influenza vaccination declined 459852035 Z28.21 6247186 Type 2 belen betes mellitus 25781688 E11.9 94430116 09/03/25: a1c 6.2c/w metforminh ad DM eye exam at [facility] 08/19/25, states that it was normal 06/03/25: a1c from 04/30/25 is 6.5, last a1c 6.2%sugar level this morning was 160 and has been running higher for the last 2 weeks, no change in diettypica lly <130only on metformin 2000mg dailyDF exam normalseei ng kidney specialist in august, d/c yanni and celia due to costf/u in 2 months 03/03/25: a1c 6.2, last a1c 6.2only on metformin for the past 6 wksf/u in 3 mo, due to DF exam next visit 07/31/24: a1c today 6.2last a1c 5.9microal bumin 34switched to trulicity 05/2024neph rology sent jardiance 05/2024, taking old invokana for 90 days then will go back on jardiancef /u in 3 mo 04/30/24: a1c today 5.9last a1c 6.2a1c done by Medicare provider at home on 04/02/24 was 5.3%c/w metformin 1000, invokana 100, victoza 1.8 mgmicroalb umin pendingDF exam nlpt [facility] for [facility] Pneumococc al vaccination declined 877193318 Z28.21 [id number] Screening for malignant neoplasm of breast 751804521 Z12.39 has appt at the end of this Month Adrenal hyperplasia 4199 37151 E27.8 85807 09/03/25: referred to Urology by Endocrine, Endocrine told pt that they are not sure if the growth on my adrenals are cancerhas MRI kidneys scheduled tomorrow 06/02/25: f/u in one week for lab results, following with Dr. So martinez appt was 6 mos ago 12/2024:fou nd incidental ly on LDCThas endocrine appt tomorrow Health Concerns Section Related Observation LastModified by Organization Detai ls LastModified Time None Recorded Concern Status LastModified by Organization Details LastModified Time None Recorded Advance Directives Directive N: Payers Insurance Date Sequence Insurance Name Policy Number Policy Young Covered Member ID Young Member ID Guarantor Name 06/07/2022 1 [facility] (MEDICARE REPLACEMENT/AD VANTAGE - HMO) Neeta Addison [id number] Neeta Addison 08/31/2025 1 [facility] (MEDICARE REPLACEMENT HMO) Neeta Addison [id number] Neeta Addison 06/07/2022 1 [place] [facility] Neeta Addison [id number] Neeta Addison 11/22/2020 SLIDING FEE SCHEDULE - DISCOUNT Neeta Addison 06/07/2022 1 [facility] - DOS PRIOR TO 2021 (MEDICAID REPLACEMENT - HMO) Neeta Addison [id number] Neeta Addison 07/04/2021 SLIDING FEE SCHEDULE - DISCOUNT Neeta Addison 07/04/2021 1 *SELF PAY* Socorro Addison 08/31/2025 [place] [facility] Neeta Addison [id number] Neeta Addison 08/31/2025 2 [place] Neeta Addison [id number] Neeta Addison Notes Date Note Type Note Provider Name and Address Organization Details Recorded Time 04/30/2024 text/html ROS as noted in the HPI Pt presents for DM f/u, DM foot exam, LDCT scan order and routine labs. Fasting BS this AM was 122. Denies fever, chills, chest pain, SOB, n/v/d, abd pain, dizziness, weakness, or headaches. CHAITANYA MCELROY Attn: Accounting[address] [facility], [place], [address], [place] [facility] 04/30/2024 15:17:33 07/31/2024 text/html ROS as noted in the HPI Pt presents for T2DM f/u and screenings. Reports that she completed DEXA, mammogram, and LDCT scan. She has not been called with LDCT scan results. CHAITANYA MCELROY Attn: Accounting[address] [facility], [place], [address], [facility] 08/03/2024 09:03:10 03/03/2025 text/html ROS as noted in the HPI Pt presents for T2DM f/u. States that she is no longer taking trulicity and has been on only metformin for the past 6 wks. CHAITANYA MCELROY Attn: Accounting[address] [facility], [place], [address], [facility] 03/04/2025 08:27:14 06/03/2025 text/html MAW 2Reported by Patient Patient here for annual check up and f/u on chronic problems. No new complaints. Concerned that her blood pressure is high and was high when she checked it at home recently. Admits to not consistently checking at home. Cannot tell when BP is high - denies RIOJAS, CP, SOB, palpitations, vision changes, dizziness. CHAITANYA MCELROY Attn: Accounting,[address] [facility], [place], [address], [place] [facility] 06/03/2025 14:33:14 09/03/2025 text/html ROS as noted in the HPI Pt presents for diabetes f/u. States that she is following with Urology in [facility] due to adrenal hyperplasia. She was referred by Endocrinology and has MRI of her kidneys scheduled tomorrow. CHAITANYA MCELROY Attn: Accounting,[address] [facility], [place], [address], [place] [facility] 09/03/2025 21:58:33 OBGyn Episode No OBEpisode recorded.
--- OUTSIDE RECORDS SUMMARY | 2025-11-18 08:46 | XMS_ITS | Clinical Summary ---
Author Organization [facility] Address [address] [place] [address] Care Team Providers Care Tester [employer] Name Role Phone Malaika Mireles MD Primary Care Provider [phone] Allergies Active Allergy Reactions Criticality Noted Date [...] patient's age to complete this topic Insurance [place] Care Teams T[employer] Relationship Specialty Start Date End Date Malaika Mirelse MD [id number] [id number] PCP - General FAMILY PRACTICE 04/03/19
[2025-11-18 09:54] LABS: Alanine Aminotransferase 18 U/L (6-35); Albumin Level 4.0 g/dL (3.5-5.1); Alkaline Phosphatase 87 U/L (38-126); Anion Gap 5 mmol/L (4-12); Aspartate Amino Transferase 23 U/L (14-36); Bilirubin,Total 0.9 mg/dL (0.2-1.3); Blood Urea Nitrogen 35 mg/dL (7-17); Calcium 9.7 mg/dL (8.4-10.2); Carbon Dioxide 25 mmol/L (22-30); Chloride 109 mmol/L (98-107); Estimated Glomerular Filt Rate 36; Glucose 144 mg/dL (65-110); Potassium 5.3 mmol/L (3.4-5.0); Sodium 139 mmol/L (137-145); Total Protein 6.9 g/dL (6.3-8.2)
== END 2025-11-18 08:42 | disposition home or self-care (01) ==
PROVIDERS: PCP Physician Assistant; Visit Provider Internal Medicine
DX: E27.8 Other specified disorders of adrenal gland (principal); E11.9 Type 2 diabetes mellitus without complications; E66.9 Obesity, unspecified; I10 Essential (primary) hypertension
CPT/HCPCS: 36415; 80053; 80299; 82533